=== PATIENT | male | born 1950 ===

== ENCOUNTER 2018-11-21 17:58 | Inpatient (IN) | payer OTHER, SELFPAY ==
[2018-11-21 18:19] VITALS: BMI 23.3
[2018-11-21] MEDS ORDERED: Atropine-Diphenoxylate 0.025-2.5 mg Tab PO STA (19:38)
--- NOTE | 2018-11-21 19:55 | C.PDOC ---
History Of Present Illness 68 year old male presents with vomiting and diarrhea for the past 3 days with occasional abdominal cramping and subjective fever. Patient also ran out of rick care and has been unable to get his medications, reports associated ch est pain today. Denies other complaints at this time. Time Seen by Provider: 11/21/18 19:18 Chief Complaint (Nursing): Abdominal Pain History Per: Patient History/Exam Limitations: no limitations Onset/Duration Of Symptoms: Days Current Symptoms Are (Timing): Still Present Recent travel outside of the [place]: No Past Medical History Reviewed: Historical Data, Nursing Documentation, Vital Signs Vital Signs: Last Vital Signs Temp 98.6 F 11/21/18 18:20 Pulse 68 11/21/18 19:16 Resp 18 11/21/18 18:20 BP 160/96 H 11/21/18 18:20 Pulse Ox 99 11/21/18 18:20 - Medical History PMH: HTN Denies: Chronic Kidney Disease Surgical History: CABG (quintuple bypass 06/2015) - [facility] Procedures INSERT INDWELLING CATH (11/29/14) RT & LT HEART ANGIOCARD (06/11/15) RT/LEFT HEART CARD CATH (06/11/15) Family History: States: Unknown Family Hx - Social History Hx Tobacco Use: No Hx Alcohol Use: No Hx Substance Use: No - Immunization History Hx Tetanus Toxoid Vaccination: No Hx Influenza Vaccination: No Hx Pneumococcal Vaccination: No Review Of Systems Except As Marked, All Systems Reviewed And Found Negative. Constitutional: Positive for: Fever (Subjective) Cardiovascular: Positive for: Chest Pain Respiratory: Negative for: Cough, Shortness of Breath Gastrointestinal: Positive for: Vomiting, Diarrhea Physical Exam - Physical Exam Appears: Non-toxic Skin: Normal Color, Warm, Dry Head: Atraumatic, Normacephalic Eye(s): bilateral: Normal Inspection Oral Mucosa: Moist Neck: Normal, Supple Chest: Symmetrical, No Tenderness Cardiovascular: Rhythm Regular Respiratory: Normal Breath Sounds, No Rales, No Rhonchi, No Wheezing Gastrointestinal/Abdominal: Soft, No Tenderness Back: No CVA Tenderness Neurological/Psych: Oriented x3, Normal Speech ED Course And Treatment - Laboratory Results Result Diagrams: 11/21/18 20:04 11/21/18 20:04 Lab Interpretation: Abnormal Interpretation Of Abnormal: NEW RENAL INSUFF COMPARED TO PRIOR ECG: Interpreted By Me ECG Rhythm: Sinus Rhythm Interpretation Of ECG: TWI I, AVL,V5-6 Rate From EC O2 Sat by Pulse Oximetry: 99 (Room air) Pulse Ox Interpretation: Normal - Radiology CXR: Interpreted by Me, Viewed By Me CXR Interpretation: Yes: Other (No acute findings). No: Infiltrates Reevaluation Time: 21:35 Reassessment Condition: Unchanged - Physician Consult Information Time Consulting Physician Contacted: 21:35 Physician Contacted: Antonio Eugene Outcome Of Conversation: AWARE OF ER FINDINGS WILL ADMIT Medical Decision Making Medical Decision Making: Plan: * EKG * Blood work * CXR * Lomotil * Zofran Disposition Counseled Patient/Family Regarding: Studies Performed, Diagnosis - Disposition Disposition: HOSPITALIZED Disposition Time: 21:35 Condition: STABLE Forms: [facility] ([employer]) - POA Present On Arrival: None - Clinical Impression Clinical Impression: Acute renal insufficiency, Vomiting and diarrhea, Chest pain - Scribe Statement The provider has reviewed the documentation as recorded by the Scribe Vidal Hernandez All medical record entries made by the Scribe were at my direction and personally dictated by me. I have reviewed the chart and agree that the record accurately reflects my personal performance of the history, physical exam, medical decision making, and the department course for this patient. I have also personally directed, reviewed, and agree with the discharge instructions and disposition.
[2018-11-21] MEDS ORDERED: Atropine-Diphenoxylate 0.025-2.5 mg Tab ONE (19:57)
[2018-11-21 20:09] LABS: BASO % 0.6 % (0.0-2.0); EOS # 0.1 K/uL (0.0-0.7); EOS % 1.9 % (0.0-4.0); HEMOGLOBIN 10.6 g/dL (12.0-18.0); LYMPH # 0.9 K/uL (1.0-4.3); LYMPH % 20.3 % (20.0-40.0); MEAN CELL VOLUME 98.4 fL (80.0-94.0); MEAN CORPUSCULAR HEMOGLOBIN 31.6 pg (27.0-31.0); MEAN CORPUSCULAR HGB CONC 32.1 g/dL (33.0-37.0); MEAN PLATELET VOLUME 9.8 fL (7.2-11.7); MONO # 0.4 K/uL (0.0-0.8); NEUT # 3.1 K/uL (1.8-7.0); NEUT % 68.2 % (50.0-75.0); RBC 3.35 Mil/uL (4.40-5.90); RED CELL DISTRIBUTION WIDTH 13.6 % (11.5-14.5); WHITE BLOOD COUNT 4.5 K/uL (4.8-10.8)
[2018-11-21 20:23] LABS: ALB/GLOB RATIO 1.4 (1.0-2.1); ALBUMIN 4.1 g/dL (3.5-5.0); CALCIUM 8.6 mg/dl (8.6-10.4)
[2018-11-21 20:33] LABS: TROPONIN I 0.039 ng/mL (0.00-0.120)
[2018-11-21] MEDS ORDERED: Sodium Chloride 0.9% 250 ML IV ONE (21:33)
[2018-11-21] MEDS ORDERED: Sodium Chloride 0.9% 1,000 ML IV SCH ×2 (21:45→22:47)
--- NOTE | 2018-11-21 22:29 | CP.PCM.HP ---
<Rico Arambula M - Last Filed: 11/22/18 00:31> History of Present Illness - History of Present Illness History of Present Illness: H&P for Dr. Eugene 68 M w/ PMhx of CABG, HTN, HLD, BPH presents to hospital for evaluation of diarrhea/ vomiting for 2 days. Patient states he had home cooked food Wednesday and shortly after had several episodes of non bloody, non bilious vomiting along with diarrhea. Patient stated symptoms persisted for 2 days, but now have resolved. Patient came in for evaluation for cause of symptoms. During arrival to hospital, patient had radiating left sided chest paint to L arm with pain reproducible on deep inspiration pain rated as 5/10 w/ pins and needles sensatio n. Patient reports he has not taken his medications for the last four months as he ran out of refills. At time of H&P patient reports pain having resolved and being asymptomatic. ROS: Denies headaches, vision changes, fevers, chills, nausea, vomiting, diarrhea, constipation, abdominal pain, chest pain, SOB; patient admits to bitter taste similar to gastritis he had several years ago PMD: Clinic PMhx: CABG, HTN, HLD, BPH Pshx: hernia, CABG Meds: aspirin 81 mg daily, plavix 75 mg daily, ramipril 1.25 mg daily Allergies: Denies FHx: Father diabetes, mother HTN Shx: Denies smoking history, ETOH and drug use Present on Admission - Present on Admission Any Indicators Present on Admission: No History of DVT/PE: No History of Uncontrolled Diabetes: No Urinary Catheter: No Decubitus Ulcer Present: No Review of Systems - Constitutional Constitutional: absent: Chills, Fever, Night Sweats - EENT Eyes: Requires Corrective Lenses. absent: Blurred Vision Nose/Mouth/Throat: Dry Mouth. absent: Nose Pain, Bleeding Gums - Cardiovascular Cardiovascular: Dyspnea. absent: Chest Pain, Chest Pain at Rest - Respiratory Respiratory: absent: Dyspnea, Pain on Inspiration - Gastrointestinal Gastrointestinal: absent: Bloating, Diarrhea - Genitourinary Genitourinary: absent: Difficulty Urinating, Nocturia - Musculoskeletal Musculoskeletal: absent: Arthralgias, Myalgias - Neurological Neurological: absent: Disequilibrium, Headaches - Psychiatric Psychiatric: absent: Confusion, Depression Past Patient History - Infectious Disease Hx of Infectious Diseases: None - Tetanus Immunizations Tetanus Immunization: Unknown - Past Medical History & Family History Past Medical History?: No - Past Social History Smoking Status: Never Smoked - CARDIAC Hx Hypertension: Yes - PULMONARY Hx Respiratory Disorders: No - NEUROLOGICAL Hx Neurological Disorder: No - HEENT Hx HEENT Problems: No - RENAL Hx Chronic Kidney Disease: No - ENDOCRINE/METABOLIC Hx Endocrine Disorders: No - HEMATOLOGICAL/ONCOLOGICAL Hx Blood Disorders: No - INTEGUMENTARY Hx Dermatological Problems: No - MUSCULOSKELETAL/RHEUMATOLOGICAL Hx Musculoskeletal Disorders: No Hx Falls: No - GASTROINTESTINAL Other/Comment: INGUINAL HERNIA - GENITOURINARY/GYNECOLOGICAL Hx Prostate Problems: Yes - PSYCHIATRIC Hx Substance Use: No - SURGICAL HISTORY Hx Coronary Artery Bypass Graft: Yes (quintuple bypass 06/2015) - ANESTHESIA Hx Anesthesia: Yes Hx Anesthesia Reactions: No Hx Malignant Hyperthermia: No Meds Allergies/Adverse Reactions: Allergies Allergy/AdvReac Type Severity Reaction Status Date / Time No Known Allergies Allergy Verified 11/21/18 18:18 Physical Exam - Constitutional Appears: Non-toxic, No Acute Distress - Head Exam Head Exam: NORMAL INSPECTION, NORMOCEPHALIC - Eye Exam Eye Exam: EOMI, Normal appearance, PERRL - ENT Exam ENT Exam: Mucous Membranes Dry - Respiratory Exam Respiratory Exam: Clear to Auscultation Bilateral, NORMAL BREATHING PATTERN. absent: Rales, Rhonchi, Wheezes - Cardiovascular Exam Cardiovascular Exam: +S1, +S2. absent: Systolic Murmur - GI/Abdominal Exam GI & Abdominal Exam: Normal Bowel Sounds, Soft. absent: Hypoactive Bowel Sounds, Mass - Extremities Exam Extremities exam: Positive for: full ROM, normal inspection. Negative for: calf tenderness, pedal edema - Back Exam Back exam: absent: CVA tenderness (L), CVA tenderness (R) - Neurological Exam Neurological exam: Alert, CN II-XII Intact, Oriented x3 - Psychiatric Exam Psychiatric exam: Normal Affect, Normal Mood - Skin Skin Exam: Dry, Intact, Normal Color, Warm Additional comments: multiple raised, hyperpigmented, stuck on appearing lesions consistent with seborrhoeic keratosis on chest Results - Vital Signs Recent Vital Signs: Last Vital Signs Temp 98.6 F 11/21/18 21:39 Pulse 59 L 11/21/18 21:39 Resp 16 11/21/18 21:39 BP 159/84 H 11/21/18 21:39 Pulse Ox 99 11/21/18 21:41 - Labs Result Diagrams: 11/21/18 20:04 11/21/18 20:04 Labs: Laboratory Results - last 24 hr 11/21/18 11/21/18 20:04 20:04 WBC 4.5 L RBC 3.35 L Hgb 10.6 L D Hct 33.0 L MCV 98.4 H D MCH 31.6 H MCHC 32.1 L RDW 13.6 Plt Count 146 MPV 9.8 Neut % (Auto) 68.2 Lymph % (Auto) 20.3 [place] % (Auto) 9.0 Eos % (Auto) 1.9 Baso % (Auto) 0.6 Neut # (Auto) 3.1 Lymph # (Auto) 0.9 L [place] # (Auto) 0.4 Eos # (Auto) 0.1 Baso # (Auto) 0.0 Sodium 145 Potassium 3.8 Chloride 109 H Carbon Dioxide 24 Anion Gap 16 BUN 38 H Creatinine 3.7 H Est GFR ( Amer) 20 Est GFR (Non-Af Amer) 16 Random Glucose 92 Calcium 8.6 Total Bilirubin 0.6 AST 30 ALT 38 Alkaline Phosphatase 62 Troponin I 0.0390 Total Protein 7.1 Albumin 4.1 Globulin 3.0 Albumin/Globulin Ratio 1.4 Lipase 87 Assessment & Plan - Assessment and Plan (Free Text) Assessment: 68 M w/ pmhx of CABG, htn, hld, bph presents for evaluation of now resolved diarrhea, vomiting, had a duration of chest pain, non compliant with medication last 4 months, currently in [facility] Plan: Chest Pain - hx of CABG, currently non complaint with medication - not currently following a toe lining closer - R/o ACS - serial ROMIs & EKGs - initial DAVID negative, EKG T wave inversions on lateral leads - resume home medications plavix 75 mg daily, aspirin 81 mg daily - F/u lipid, TSH, hgA1C in AM - F/u cardiology, Dr. Mohit gentile Acute Kidney Injury - Baseline Cr 2018 in low 1s - Currently Cr is 3.7 - likely due to dehydration from diarrhea, vomiting - NS @ 75 mls/hr - will increase fluids following ECHO - will consider nephro consult pending AM labs Hypertension - in lieu of KAYLEEN, will hold ramipril - w/ HR fluctuating, will start hydralizine 10 mg PO Q6H - will monitor vitals BPH - c/w folamax daily Gastritis - pt reports metallic taste in moth - will start pepcid 20 mg PO daily PPx - DVT: SCDs, heparin 5000 units SC - Diet: Heart health diet as patient reports no N/V & resolution of diarrhea, vomiting <Antonio Eugene Rg - Last Filed: 11/22/18 06:10> Results - Vital Signs Recent Vital Signs: Last Vital Signs Temp 98.3 F 11/22/18 05:41 Pulse 83 11/22/18 05:41 Resp 18 11/22/18 05:41 BP 157/83 H 11/22/18 05:41 Pulse Ox 98 11/22/18 05:41 - Labs Result Diagrams: 11/21/18 20:04 11/21/18 20:04 Labs: Laboratory Results - last 24 hr 11/21/18 11/21/18 11/22/18 20:04 20:04 02:26 WBC 4.5 L RBC 3.35 L Hgb 10.6 L D Hct 33.0 L MCV 98.4 H D MCH 31.6 H MCHC 32.1 L RDW 13.6 Plt Count 146 MPV 9.8 Neut % (Auto) 68.2 Lymph % (Auto) 20.3 [place] % (Auto) 9.0 Eos % (Auto) 1.9 Baso % (Auto) 0.6 Neut # (Auto) 3.1 Lymph # (Auto) 0.9 L [place] # (Auto) 0.4 Eos # (Auto) 0.1 Baso # (Auto) 0.0 Sodium 145 Potassium 3.8 Chloride 109 H Carbon Dioxide 24 Anion Gap 16 BUN 38 H Creatinine 3.7 H Est GFR ( Amer) 20 Est GFR (Non-Af Amer) 16 Random Glucose 92 Calcium 8.6 Total Bilirubin 0.6 AST 30 ALT 38 Alkaline Phosphatase 62 Total Creatine Kinase 86 CK-MB (Mass) 1.27 Troponin I 0.0390 0.0390 Total Protein 7.1 Albumin 4.1 Globulin 3.0 Albumin/Globulin Ratio 1.4 Lipase 87 Assessment & Plan - Date & Time Date: 11/22/18 (I have seen and examined the patient. I agree with the findings and plan of care as documented by Dr. Arambula. Patient with chest pain. ROMIx3 with EKG. Aspirin. Statin. Acute kidney injury. Likely secondary to dehydration from vomiting and diarrhea. IVF. Recheck renal function in AM. Vomiting and diarrhea likely from gastroenteritis. Stool Cultures. Monitor for acute changes.) Time: 06:09 Attending/Attestation - Attestation I have personally seen and examined this patient.: Yes I have fully participated in the care of the patient.: Yes I have reviewed all pertinent clinical information: Yes
[2018-11-21] MEDS: Sodium Chloride 0.9% 1,000 ML IV SCH (23:58)
[2018-11-22 02:54] LABS: CK-MB 1.27 ng/mL (0.0-3.38); TROPONIN I 0.039 ng/mL (0.00-0.120)
[2018-11-22 09:17] LABS: BASO % 0.6 % (0.0-2.0); EOS # 0.2 K/uL (0.0-0.7); EOS % 3.3 % (0.0-4.0); HEMOGLOBIN 11.2 g/dL (12.0-18.0); LYMPH # 1.5 K/uL (1.0-4.3); MEAN CORPUSCULAR HEMOGLOBIN 32.2 pg (27.0-31.0); MEAN CORPUSCULAR HGB CONC 32.5 g/dL (33.0-37.0); MEAN PLATELET VOLUME 10.7 fL (7.2-11.7); MONO # 0.4 K/uL (0.0-0.8); MONO % 8.3 % (0.0-10.0); NEUT # 3.3 K/uL (1.8-7.0); NEUT % 60.8 % (50.0-75.0); NRBC % 0.2 % (0.0-2.0); RBC 3.5 Mil/uL (4.40-5.90); RED CELL DISTRIBUTION WIDTH 13.6 % (11.5-14.5); WHITE BLOOD COUNT 5.4 K/uL (4.8-10.8)
[2018-11-22 09:32] LABS: ALB/GLOB RATIO 1.3 (1.0-2.1); ALBUMIN 4.1 g/dL (3.5-5.0); CALCIUM 8.5 mg/dl (8.6-10.4)
[2018-11-22 09:41] LABS: CK-MB 1.59 ng/mL (0.0-3.38); TROPONIN I 0.043 ng/mL (0.00-0.120)
--- NOTE | 2018-11-22 10:00 | RAD ---
Date of service: 11/21/2018 HISTORY: chest pain COMPARISON: 04/06/2016 FINDINGS: LUNGS: Mild venous congestion. Minimal patchy increased markings at the left lung base. Biapical pleural thickening. PLEURA: No significant pleural effusion identified, no pneumothorax apparent. CARDIOVASCULAR: Aortic atherosclerotic calcification and plaque present. Cardiomegaly. Left-sided pacemaker. Status post median sternotomy and CABG. Venous congestion. OSSEOUS STRUCTURES: Degenerative changes in the spine and shoulders. VISUALIZED UPPER ABDOMEN: Normal. OTHER FINDINGS: None. IMPRESSION: Mild venous congestion. Minimal patchy increased markings at the left lung base. Biapical pleural thickening. Cardiomegaly. Left-sided pacemaker. Status post median sternotomy and CABG. Venous congestion.
[2018-11-22] MEDS: Sodium Chloride 0.9% 1,000 ML IV SCH ×2 (11:12→11:55)
--- NOTE | 2018-11-22 12:43 | CARD ---
APPROVED REPORT Date of service: 11/21/2018 EKG Measurement Heart [id number] <Conclusion> Sinus rhythm with short NV Possible Left atrial enlargement Left ventricular hypertrophy with repolarization abnormality Abnormal ECG
--- NOTE | 2018-11-22 13:27 | CP.PCM.PN ---
<Helen Sewell Y - Last Filed: 11/22/18 15:44> Subjective - Date & Time of Evaluation Date of Evaluation: 11/22/18 Time of Evaluation: 09:50 - Subjective Subjective: PGY-1 Medicine Progress note for Dr. Felipe Patient was seen and examined today at bedside in no acute distress. Nurse reports no overnight events. Patient states he feels great improvement of his cardiac symptoms and wants to go home. He will stay for as long as it takes to get a refill of his medications and not have this happen again. Denies chest pain, shortness of breath, abdominal pain, difficulty urinating, headache. He hasn't had a BM since the diarrhea ended 2 days ago since he didn't try to eat prior to coming into the hospital. Tolerated breakfast without nausea, vomiting, diarrhea. Objective - Vital Signs/Intake and Output Vital Signs (last 24 hours): Temp Pulse Resp BP Pulse Ox 97.3 F L 65 20 170/89 H 96 11/22/18 07:00 11/22/18 12:17 11/22/18 07:00 11/22/18 11:11 11/22/18 07:00 Intake and Output: 11/22/18 11/22/18 06:59 18:59 Intake Total 600 Balance 600 - Medications Medications: Current Medications Aspirin (Ecotrin) 81 mg PO DAILY [facility] Last Admin: 11/22/18 10:40 Dose: 81 mg Clopidogrel Bisulfate (Plavix) 75 mg PO DAILY [facility] Last Admin: 11/22/18 10:39 Dose: 75 mg Famotidine (Pepcid) 20 mg PO DAILY [facility] Last Admin: 11/22/18 10:40 Dose: 20 mg Heparin Sodium (Porcine) (Heparin) 5,000 units SC Q8 [facility] Last Admin: 11/22/18 05:43 Dose: 5,000 units Hydralazine HCl (Apresoline) 10 mg PO Q6H [facility] Last Admin: 11/22/18 11:10 Dose: 10 mg Sodium Chloride (Sodium Chloride 0.9%) 1,000 mls @ 75 mls/hr IV .[id number] [facility] Last Admin: 11/22/18 11:55 Dose: Not Given Rosuvastatin Calcium (Crestor) 5 mg PO HS [facility] Tamsulosin HCl (Flomax) 0.4 mg PO DAILY [facility] Last Admin: 11/22/18 10:39 Dose: 0.4 mg - Labs Labs: 11/22/18 08:43 11/22/18 08:43 - Constitutional Appears: Non-toxic, No Acute Distress - Head Exam Head Exam: ATRAUMATIC, NORMOCEPHALIC - Eye Exam Eye Exam: EOMI, PERRL - ENT Exam ENT Exam: Mucous Membranes Moist - Respiratory Exam Respiratory Exam: Clear to Ausculation Bilateral, NORMAL BREATHING PATTERN. absent: Rales, Rhonchi, Wheezes - Cardiovascular Exam Cardiovascular Exam: REGULAR RHYTHM, +S1, +S2. absent: Gallop, Rubs, Murmur - GI/Abdominal Exam GI & Abdominal Exam: Firm (contracted muscles from being ticklish), Soft, Normal Bowel Sounds. absent: Tenderness - Extremities Exam Extremities Exam: Normal Capillary Refill Additional comments: IV access in L arm - Back Exam Back Exam: absent: CVA tenderness (L), CVA tenderness (R) - Neurological Exam Neurological Exam: Alert, Awake, Oriented x3 - Psychiatric Exam Psychiatric exam: Normal Affect, Normal Mood - Skin Skin Exam: Dry, Intact, Normal Color, Warm Additional comments: SK on chest Assessment and Plan - Assessment and Plan (Free Text) Assessment: 68yo M PMH CHF s/p CABG, AICD, CAD, HTN, BPH, presents with chest pain 2/2 non- compliance with medications, currently in [facility]. Plan: [facility] - Baseline Cr 2018 in low 1s - Cr trend: 3.7 OA -> 3.5 today - likely due to dehydration from diarrhea, vomiting - IVF: NS@75 - will increase fluids pending ECHO - Nephro consulted: Dr. Mccray - help appreciated Chest Pain - resolving r/o ACS - serial ROMIs and EKGs negative x3 - Lipid panel: TG 119 Chol 160 LDL 77 HDL 57 - TSH: 1.71, Hgb A1c: 6.0 - CXR (11/21): mild venous congestion. minimal patchy increased markings at the LL base. bi-apical pleural thickening. cardiomegaly. L sided pacemaker. s/p median sternotomy and CABG. venous congestion. - f/u ECHO (11/21): pending read - home ASA 81mg po daily - home Plavix 75mg po daily - Cardio consulted: Dr. Rueda - help appreciated Hypertension - hold Ramipril 2/2 [facility] - Hydralazine 10mg po q6 - Amlodipine 2.5mg po daily - monitor vitals BPH - home Flomax 0.4mg po daily PPx - DVT: Heparin 5000u sc q8, Plavix 75mg po daily, SCDs - GI: Pepcid 20mg po daily, Miralax 17gm po once - Diet: HHD d/w Dr. Destinee Sewell PGY-1 <Kev Felipe - Last Filed: 11/22/18 19:08> Objective - Vital Signs/Intake and Output Vital Signs (last 24 hours): Temp Pulse Resp BP Pulse Ox 98 F 63 18 148/81 96 11/22/18 15:34 11/22/18 16:00 11/22/18 15:34 11/22/18 15:34 11/22/18 15:34 Intake and Output: 11/22/18 11/23/18 18:59 06:59 Intake Total 1200 Balance 1200 - Medications Medications: Current Medications Amlodipine Besylate (Norvasc) 2.5 mg PO DAILY [facility] Last Admin: 11/22/18 14:45 Dose: 2.5 mg Aspirin (Ecotrin) 81 mg PO DAILY [facility] Last Admin: 11/22/18 10:40 Dose: 81 mg Clopidogrel Bisulfate (Plavix) 75 mg PO DAILY [facility] Last Admin: 11/22/18 10:39 Dose: 75 mg Famotidine (Pepcid) 20 mg PO DAILY [facility] Last Admin: 11/22/18 10:40 Dose: 20 mg Heparin Sodium (Porcine) (Heparin) 5,000 units SC Q8 [facility] Last Admin: 11/22/18 13:36 Dose: 5,000 units Hydralazine HCl (Apresoline) 10 mg PO Q6H [facility] Last Admin: 11/22/18 17:25 Dose: 10 mg Sodium Chloride (Sodium Chloride 0.9%) 1,000 mls @ 75 mls/hr IV .[id number] [facility] Last Admin: 11/22/18 11:55 Dose: Not Given Rosuvastatin Calcium (Crestor) 5 mg PO HS [facility] Tamsulosin HCl (Flomax) 0.4 mg PO DAILY [facility] Last Admin: 11/22/18 10:39 Dose: 0.4 mg - Labs Labs: 11/22/18 08:43 11/22/18 08:43 Attending/Attestation - Attestation I have personally seen and examined this patient.: Yes I have fully participated in the care of the patient.: Yes I have reviewed all pertinent clinical information, including history, physical exam and plan: Yes Notes (Text): acute renal failure nephrology consult
[2018-11-22] MEDS ORDERED: POLYETHYLENE GLYCOL 3350 17 GM/Dose PACKET PO SCH (14:30)
[2018-11-22] MEDS ORDERED: POLYETHYLENE GLYCOL 3350 17 GM/Dose PACKET PO ONE (14:30)
[2018-11-22 18:02] LABS: SQUAMOUS EPITHIAL 1 /hpf (0-5); URINE BILIRUBIN NEGATIVE (NEGATIVE); URINE BLOOD NEGATIVE (NEGATIVE); URINE CLARITY Clear (Clear); URINE COLOR Yellow (YELLOW); URINE GLUCOSE (UA) NORMAL (Normal); URINE LEUKOCYTE ESTERASE NEG Leu/uL (Negative); URINE PROTEIN NEGATIVE (NEGATIVE); URINE UROBILINOGEN NORMAL mg/dL (0.2-1.0)
[2018-11-22 18:10] LABS: CREATININE, RANDOM URINE 68.1 mg/dL
--- NOTE | 2018-11-22 18:34 | CARD ---
APPROVED REPORT Date of service: 11/22/2018 EXAM: Two-dimensional and M-mode echocardiogram with Doppler and color Doppler. Other Information Quality : GoodRhythm : INDICATION Congestive Heart Failure Palpitations Surgery/Intervention CABG: RISK FACTORS Hypertension Hyperlipidemia 2D DIMENSIONS IVSd1.1 (0.7-1.1cm)LVDd5.9 (3.9-5.9cm) PWd0.8 (0.7-1.1cm)LA [id number] (18-58mL) LVDs5.0 (2.5-4.0cm)FS (%) 15.5 % LVEF (%)32.2 (>50%)LVEF (Ray's)36.67 % IVC0.00 cm M-Mode DIMENSIONS Left Atrium (MM)3.59 (2.5-4.0cm)IVSd2.12 (0.7-1.1cm) Aortic Root3.57 (2.2-3.7cm)LVDd6.59 (4.0-5.6cm) Aortic Cusp Exc.2.43 (1.5-2.0cm)PWd0.76 (0.7-1.1cm) FS (%) 17 %LVDs5.45 (2.0-3.8cm) TAPSE17.96 cmLVEF (%)35 (>50%) Aortic Valve AI P 1/2 [id number] Mitral Valve MV E Snkgrrtr68.0cm/sMV A Hffzrgem95.7cm/sE/A ratio1.4 MUZS184.00 cm/s TDI Lateral E' Peak V7.45cm/sMedial E' Peak V3.45cm/sE/Lateral E'11.4 E/Medial E'24.6 Tricuspid Valve TR Peak Bazfvzzo058im/sTR Peak Gr.[id number] LEFT VENTRICLE The left ventricle is normal size. There is normal left ventricular wall thickness. Left ventricle systolic function is moderately to severely impaired. The Ejection Fraction is 35-40%. There is moderate to severe hypokinesis in the basal inferoseptal wall. Transmitral Doppler flow pattern is Grade II-pseudonormal filling dynamics. There is no ventricular septal defect visualized. RIGHT VENTRICLE The right ventricle is normal size. The right ventricular systolic function is normal. There is a pacemaker lead in the right ventricle. ATRIA The left atrium is moderately dilated. The right atrium size is normal. AORTIC VALVE The aortic valve is mildly sclerotic. The aortic valve is tri-cuspid. There is mild aortic regurgitation. There is no aortic valvular stenosis. MITRAL VALVE The mitral valve is normal in structure. There is no evidence of mitral valve prolapse. Mitral regurgitation is mild. ERO 0.2 cm TRICUSPID VALVE The tricuspid valve is normal in structure. There is mild tricuspid regurgitation. Right ventricular systolic pressure is estimated at 40-50 mmHg. There is moderate pulmonary hypertension. PULMONIC VALVE The pulmonary valve is normal in structure. There is trace pulmonic valvular regurgitation. GREAT VESSELS The aortic root is mildly enlarged. 3.9 cm The ascending aorta is Mildly dilated. 4.2 cm The IVC is normal in size and collapses >50% with inspiration. PERICARDIAL EFFUSION There is no pericardial effusion. <Conclusion> Left ventricle systolic function is moderately to severely impaired. The Ejection Fraction is 35-40%. Transmitral Doppler flow pattern is Grade II-pseudonormal filling dynamics. There is mild aortic regurgitation. Mitral regurgitation is mild. ERO 0.2 cm There is moderate pulmonary hypertension. The ascending aorta is Mildly dilated. 4.2 cm
[2018-11-22 20:15] LABS: CALCIUM 8.2 mg/dl (8.6-10.4)
[2018-11-23] MEDS: Sodium Chloride 0.9% 1,000 ML IV SCH (03:45)
--- NOTE | 2018-11-23 07:03 | CON ---
DATE: 11/22/2018 NEPHROLOGY CONSULTATION LOCATION: [facility] HISTORY OF PRESENT ILLNESS: The patient is a 68-year-old male with past medical history of hypertension, CAD status post CABG, hyperlipidemia, BPH, presented with lethargy after having had vomiting and diarrhea for two days. Nephrology being consulted for acute renal failure. The patient reportedly had nonbloody, nonbilious vomiting along with diarrhea for two days prior to presentation, although symptoms had resolved by the time of presentation. The patient currently feels better, is tolerating diet with appetite improving; has not had any vomiting or diarrhea. Today, the patient in the ER was started on IV fluids, currently having received approximately 2 liters since the time of presentation. The patient reports urinating well. Reports that he ran out of all his medications except for Flomax; ran out of medications after his [employer] . Has not seen his PMD since middle of last year for this reason. PAST MEDICAL HISTORY: As above. SOCIAL HISTORY: Denies smoking. FAMILY HISTORY: Father with diabetes. Mother with hypertension. REVIEW OF SYSTEMS: CONSTITUTIONAL: Reports 5-kilo weight loss over the past approximately six months. Denies any night sweats or fevers. HEENT: Denies any difficulty swallowing. Vision is stable. RESPIRATORY: Reports occasional dyspnea but otherwise able to walk many blocks without symptoms. CARDIOVASCULAR: Reports occasional chest pain, occasional palpitations but not related to exertion. GASTROINTESTINAL: As per HPI. GENITOURINARY: Denies any dysuria. Reports regular urine stream that he attributes to being on Flomax. MUSCULOSKELETAL: Denies any back pain or arthralgias. Does not take any pain medications. SKIN: Denies any pruritus. NEUROLOGIC: Reports some numbness in his feet. PHYSICAL EXAMINATION: VITAL SIGNS: This afternoon, blood pressure 148/81, heart rate 68, respirations 18, temperature 98, and O2 sat 96% on room air. GENERAL: No distress. Conversing coherently in full sentences. HEENT: Moist mucous membranes. Nonicteric. No cervical lymphadenopathy. No elevation in JVD. RESPIRATORY: Lungs clear to auscultation bilaterally. No rales. No rhonchi. No wheezes. CARDIOVASCULAR: Heart sounds S1 and S2 normal. No murmurs. No gallops. No rubs. GASTROINTESTINAL: Abdomen is soft, nontender, and is distended. GENITOURINARY: Has distention over bladder area all the way to the umbilicus. EXTREMITIES: No leg edema. SKIN: Warm. No cyanosis. PSYCHIATRIC: Normal mood, normal affect. NEUROLOGIC: No obvious tremor of outstretched hands. LABORATORY DATA: From this morning, CBC; WBC 5.4, hemoglobin 11.2, hematocrit 34.6, platelets 134. Chemistry panel from this evening; sodium 141, potassium 4.5, chloride 106, bicarb 27, BUN 36, creatinine 3.6, glucose 119, calcium 8.2. Urine studies, protein negative, blood negative. Urine sodium 74, urine creatinine 68.1. Chest x-ray directly visualized shows lungs clear yesterday. Echo report reviewed showing left ventricular systolic function moderately severely impaired with EF 35-40%, moderate pulmonary hypertension. ASSESSMENT AND PLAN: 1. Acute renal failure. The patient is without any improvement in renal funciton with intravascular volume expansion despite gastrointestinal losses having remitted prior to presentation. Elevated urine sodium goes against prerenal state as well. The patient is having marked suprapubic distention on exam likely indicative of bladder outlet obstruction, but we will confirm with renal and bladder ultrasound. Once obstruction is confirmed, we will place Ann catheter. If there is no evidence of any obstructive process, we will need to pursue further workup. 2. Hypertension, uncontrolled for much of the day, but improving after patient restarted on medications. Agree with hydralazine 10 mg every 6 hours and amlodipine 2.5 mg daily for now. However, should switch to a simplified regimen prior to discharge. 3. Benign prostatic hypertrophy, waiting to see if there is any obstructive uropathy. If so, should increase Flomax to 0.8 mg daily and start finasteride 5 mg daily. Thank you for this referral. We will be following closely. Peter Mccray MD MTDFreeman
[2018-11-23 09:18] LABS: BASO % 0.6 % (0.0-2.0); EOS # 0.2 K/uL (0.0-0.7); EOS % 3.1 % (0.0-4.0); HEMOGLOBIN 10.4 g/dL (12.0-18.0); LYMPH # 1.3 K/uL (1.0-4.3); LYMPH % 25.7 % (20.0-40.0); MEAN CELL VOLUME 97.4 fL (80.0-94.0); MEAN CORPUSCULAR HEMOGLOBIN 32.4 pg (27.0-31.0); MEAN CORPUSCULAR HGB CONC 33.2 g/dL (33.0-37.0); MEAN PLATELET VOLUME 9.9 fL (7.2-11.7); MONO # 0.3 K/uL (0.0-0.8); MONO % 5.7 % (0.0-10.0); NEUT # 3.3 K/uL (1.8-7.0); NEUT % 64.9 % (50.0-75.0); RBC 3.2 Mil/uL (4.40-5.90); RED CELL DISTRIBUTION WIDTH 13.2 % (11.5-14.5); WHITE BLOOD COUNT 5.1 K/uL (4.8-10.8)
[2018-11-23 09:36] LABS: ALB/GLOB RATIO 1.3 (1.0-2.1); ALBUMIN 3.5 g/dL (3.5-5.0); CALCIUM 8.1 mg/dl (8.6-10.4)
--- NOTE | 2018-11-23 09:41 | US ---
Date of service: 11/22/2018 PROCEDURE: Ultrasound of the Kidneys HISTORY: acute renal failure COMPARISON: Comparison is made with the previous ultrasound of the abdomen dated 02/17/2016. TECHNIQUE: Sonogram of the kidneys. FINDINGS: RIGHT KIDNEY: Measures: 12.1 x 5.6 x 6.1 cm. Heterogeneous renal cortex with mild increased echogenicity. Is moderate to severe right hydronephrosis and proximal hydroureter. LEFT KIDNEY: Measures: 11.3 x 5.2 x 6 cm. Heterogeneous mild increased echogenicity of the renal cortex Moderate to severe left hydronephrosis is also noted. OTHER FINDINGS: The urinary bladder is distended demonstrate [id number] circumferential wall thickening. The prostate is enlarged protruding into the bladder lumen measures 6.9 x 5.8 x 5.9 centimeter with a total volume of 122.8 mL. There is possible small diverticulum in the left posterior aspect of the bladder measures 2.6 x 1.7 centimeter. IMPRESSION: Moderate to severe bilateral hydronephrosis. Mild increased echogenicity of the renal cortex suggestive of renal disease. Distended urinary bladder demonstrate [id number] diffuse wall thickening suggestive of bladder outlet obstruction. Moderately to markedly enlarged prostate with a total volume of 122.8 mL. Preliminary report contains concordant findings was submitted by [facility] Radiology.
[2018-11-23] MEDS ORDERED: Potassium Chloride 20 mEq ER Tab PO ONE (10:16)
--- NOTE | 2018-11-23 10:23 | CP.PCM.PN ---
<Yasmin Cano - Last Filed: 11/23/18 13:41> Subjective - Date & Time of Evaluation Date of Evaluation: 11/23/18 Time of Evaluation: 10:18 - Subjective Subjective: Progress note for Dr. Mccray Patient was seen and examined at bedside in no acute distress. Patient reports he is feeling better than yesterday. He said he is urinating w/o difficulty this morning and has voided 3 times. He admits to blood in urine s/p hanna insertion attempted last night. Patient otherwise has no complaints today and denies abdominal pain, pelvic/suprapubic pain, chest pain, palpitations, nausea, vomiting, fevers, headaches, dizziness, leg pain, leg swelling, back pain, and pain with urination. Objective - Vital Signs/Intake and Output Vital Signs (last 24 hours): Temp Pulse Resp BP Pulse Ox 98.0 F 58 L 20 154/80 H 97 11/23/18 07:00 11/23/18 07:50 11/23/18 07:00 11/23/18 07:00 11/23/18 07:00 Intake and Output: 11/23/18 11/23/18 06:59 18:59 Intake Total 600 Output Total 225 Balance 375 - Medications Medications: Current Medications Amlodipine Besylate (Norvasc) 2.5 mg PO DAILY [facility] Last Admin: 11/23/18 09:51 Dose: 2.5 mg Aspirin (Ecotrin) 81 mg PO DAILY [facility] Last Admin: 11/23/18 09:50 Dose: 81 mg Clopidogrel Bisulfate (Plavix) 75 mg PO DAILY [facility] Last Admin: 11/23/18 09:50 Dose: 75 mg Famotidine (Pepcid) 20 mg PO DAILY [facility] Last Admin: 11/23/18 09:50 Dose: 20 mg Finasteride (Proscar) 5 mg PO DAILY [facility] Last Admin: 11/23/18 09:51 Dose: 5 mg Heparin Sodium (Porcine) (Heparin) 5,000 units SC Q8 [facility] Last Admin: 11/23/18 06:27 Dose: 5,000 units Hydralazine HCl (Apresoline) 10 mg PO Q6H [facility] Last Admin: 11/23/18 06:27 Dose: 10 mg Potassium Chloride (K-Dur 20 Meq Er Tab) 20 meq PO ONCE ONE Stop: 11/23/18 10:17 Rosuvastatin Calcium (Crestor) 5 mg PO HS [facility] Last Admin: 11/22/18 21:55 Dose: 5 mg Tamsulosin HCl (Flomax) 0.8 mg PO DAILY [facility] Last Admin: 11/23/18 09:50 Dose: Not Given - Labs Labs: 11/23/18 09:02 11/23/18 09:02 - Constitutional Appears: No Acute Distress - Head Exam Head Exam: ATRAUMATIC, NORMAL INSPECTION - Eye Exam Eye Exam: EOMI, Normal appearance - ENT Exam ENT Exam: Mucous Membranes Moist - Respiratory Exam Respiratory Exam: NORMAL BREATHING PATTERN. absent: Rales, Rhonchi, Wheezes, Respiratory Distress Additional comments: Well healed mid sternal scar, pacemaker in left chest wall - Cardiovascular Exam Cardiovascular Exam: REGULAR RHYTHM, +S1, +S2 - GI/Abdominal Exam GI & Abdominal Exam: Firm (suprapubic region), Normal Bowel Sounds. absent: Guarding, Tenderness - Exam Exam: Bladder Distension - Extremities Exam Extremities Exam: Normal Inspection. absent: Pedal Edema, Tenderness - Neurological Exam Neurological Exam: Alert, Awake, Oriented x3 - Psychiatric Exam Psychiatric exam: Normal Affect, Normal Mood - Skin Skin Exam: Dry, Normal Color, Warm Assessment and Plan - Assessment and Plan (Free Text) Plan: 68 year old male with a history of CABG, HTN, HLD, and BPH, who presented to the hospital with diarrhea, vomiting, and chest pain. Inspector Elevators consulted for KAYLEEN. Acute Renal Failure - Secondary to enlarged prostate and obstruction - Baseline Cr 1.1 in 10/2017 - Improved slightly since admission (3.7), now 3.4 - UA: negative for protein and blood - Urine Cr 68.1, Urine Na 74 - Bladder US: moderate to severe bilateral hydronephrosis; mild increased echogenicity of the renal cortex suggestive of renal disease; distended urinary bladder demonstrate mild-to moderate diffuse wall thickening suggestive of bladder outlet obstruction; moderately to markedly enlarged prostate w/a total volume 122.8mL. Prostate is enlarged protruding into bladder lumen measuring 6.9x5.8x5.9cm. - Hanna catheter inserted on 11/23/18. Monitor I/Os. - Urology was consulted, Dr Cunningham; Will f/u recommendations. Hypertension - Hold home medication: Ramipril, due to ARF - Continue Hydralazine 10mg PO Q6 and Amlodipine 2.5mg PO Daily Benign Prostatic Hypertrophy - Increased home medication to Flomax 0.8mg PO daily - Started Finasteride 5mg PO daily Case discussed with Dr. Mahendra Mullen, PGY2 <Peter Mccray - Last Filed: 11/24/18 06:38> Objective - Vital Signs/Intake and Output Vital Signs (last 24 hours): Temp Pulse Resp BP Pulse Ox 98.6 F 83 20 160/90 H 97 11/24/18 05:25 11/24/18 05:25 11/24/18 05:25 11/24/18 05:25 11/24/18 05:25 Intake and Output: 11/23/18 11/24/18 18:59 06:59 Intake Total 300 Output Total 2100 4350 Balance -1800 -4350 - Medications Medications: Current Medications Amlodipine Besylate (Norvasc) 10 mg PO DAILY [facility] Aspirin (Ecotrin) 81 mg PO DAILY [facility] Last Admin: 11/23/18 09:50 Dose: 81 mg Clopidogrel Bisulfate (Plavix) 75 mg PO DAILY [facility] Last Admin: 11/23/18 09:50 Dose: 75 mg Famotidine (Pepcid) 20 mg PO DAILY [facility] Last Admin: 11/23/18 09:50 Dose: 20 mg Finasteride (Proscar) 5 mg PO DAILY [facility] Last Admin: 11/23/18 09:51 Dose: 5 mg Heparin Sodium (Porcine) (Heparin) 5,000 units SC Q8 [facility] Last Admin: 11/24/18 05:27 Dose: 5,000 units Hydralazine HCl (Apresoline) 10 mg PO Q6H [facility] Last Admin: 11/24/18 05:26 Dose: 10 mg Sodium Chloride (Sodium Chloride 0.45%) 1,000 mls @ 100 mls/hr IV .Q10H [facility] Last Admin: 11/23/18 22:17 Dose: 100 mls/hr Rosuvastatin Calcium (Crestor) 5 mg PO HS [facility] Last Admin: 11/23/18 22:11 Dose: 5 mg Sennosides (Senokot Tab) 8.6 mg PO DAILY [facility] Last Admin: 11/23/18 12:02 Dose: 8.6 mg Tamsulosin HCl (Flomax) 0.8 mg PO DAILY [facility] - Labs Labs: 11/23/18 09:02 11/23/18 09:02 Attending/Attestation - Attestation I have personally seen and examined this patient.: Yes I have fully participated in the care of the patient.: Yes I have reviewed all pertinent clinical information, including history, physical exam and plan: Yes Notes (Text): Patient seen and examined; I agree with the resident's note as above with the following additions/edits: Patient with history of htn, CAD s/p CABG, BPH, admitted with acute renal failure, found to have severe bilateral hydronephrosis and bladder outlet ob struction from enlarged prostate; Hanna finally able to be inserted today; noted to be polyuric; urology consult appreciated, patient will need to keep hanna in place for at least 1 week while on current meds (flomax 0.8 and finasteride); Acute renal failure due to obstructive uropathy; question is whether renal function will improve significantly, especially if hydro has been very prolonged (possibly months); will need to monitor closely; HTN uncontrolled, will increase amlodipine to 10 mg daily; continue hydralazine for now; -starting on IVF with 1/2NS at 100 cc/hr to avoid volume depletion; -monitor electrolytes; -avoid nephrotoxic agents;
--- NOTE | 2018-11-23 11:49 | CP.PCM.PN ---
<Helen Sewell Y - Last Filed: 11/23/18 15:59> Subjective - Date & Time of Evaluation Date of Evaluation: 11/23/18 Time of Evaluation: 09:30 - Subjective Subjective: PGY-1 Medicine Progress note for Dr. Felipe Patient was seen and examined today at bedside in no acute distress. Patient had an attempted Ann insertion last night that was unsuccessful do to BPH. He admits to minimal bleeding last night, and some scant streaking hematuria this morning. He still has been unable to have a BM. Tolerating food without nausea, vomiting. Denies chest pain, shortness of breath, abdominal pain, difficulty urinating, headache. Objective - Vital Signs/Intake and Output Vital Signs (last 24 hours): Temp Pulse Resp BP Pulse Ox 98.0 F 58 L 20 154/80 H 97 11/23/18 07:00 11/23/18 07:50 11/23/18 07:00 11/23/18 07:00 11/23/18 07:00 Intake and Output: 11/23/18 11/23/18 06:59 18:59 Intake Total 600 Output Total 225 Balance 375 - Medications Medications: Current Medications Amlodipine Besylate (Norvasc) 2.5 mg PO DAILY [facility] Last Admin: 11/23/18 09:51 Dose: 2.5 mg Aspirin (Ecotrin) 81 mg PO DAILY [facility] Last Admin: 11/23/18 09:50 Dose: 81 mg Clopidogrel Bisulfate (Plavix) 75 mg PO DAILY [facility] Last Admin: 11/23/18 09:50 Dose: 75 mg Famotidine (Pepcid) 20 mg PO DAILY [facility] Last Admin: 11/23/18 09:50 Dose: 20 mg Finasteride (Proscar) 5 mg PO DAILY [facility] Last Admin: 11/23/18 09:51 Dose: 5 mg Heparin Sodium (Porcine) (Heparin) 5,000 units SC Q8 [facility] Last Admin: 11/23/18 06:27 Dose: 5,000 units Hydralazine HCl (Apresoline) 10 mg PO Q6H [facility] Last Admin: 11/23/18 10:36 Dose: 10 mg Rosuvastatin Calcium (Crestor) 5 mg PO HS [facility] Last Admin: 11/22/18 21:55 Dose: 5 mg Sennosides (Senokot Tab) 8.6 mg PO DAILY [facility] Tamsulosin HCl (Flomax) 0.8 mg PO DAILY [facility] - Labs Labs: 11/23/18 09:02 11/23/18 09:02 - Constitutional Appears: Well, No Acute Distress - Head Exam Head Exam: ATRAUMATIC, NORMOCEPHALIC - Eye Exam Eye Exam: EOMI, PERRL - ENT Exam ENT Exam: Mucous Membranes Moist - Respiratory Exam Respiratory Exam: Clear to Ausculation Bilateral, NORMAL BREATHING PATTERN. absent: Rales, Rhonchi, Wheezes - Cardiovascular Exam Cardiovascular Exam: REGULAR RHYTHM, +S1, +S2. absent: Gallop, Rubs, Murmur - GI/Abdominal Exam GI & Abdominal Exam: Firm, Soft, Normal Bowel Sounds. absent: Guarding, Tenderness - Exam Exam: NORMAL INSPECTION, Bladder Distension - Extremities Exam Extremities Exam: Normal Capillary Refill. absent: Tenderness Additional comments: IV access in L arm - Back Exam Back Exam: absent: CVA tenderness (L), CVA tenderness (R) - Neurological Exam Neurological Exam: Alert, Awake, Oriented x3 - Psychiatric Exam Psychiatric exam: Normal Affect, Normal Mood - Skin Skin Exam: Dry, Intact, Normal Color, Warm Additional comments: SK on chest Assessment and Plan - Assessment and Plan (Free Text) Assessment: 68yo M PMH CHF s/p CABG, AICD, CAD, HTN, BPH, presents with chest pain 2/2 non- compliance with medications, which has now resolved. He currently is in KAYLEEN 2/2 hydronephrosis. Plan: KAYLEEN 2/2 hydronephrosis - Baseline Cr 2018 in low 1s - Cr trend: 3.7 OA -> 3.5 -> 3.4 today - US Bladder (11/23): mod to severe hydronephrosis. distended bladder with mild to mod diffuse wall thickening suggestive of bladder outlet obstruction, enlarged prostate. - Patient was still retaining on post void bladder scan. Voided almost 2L with Ann. - monitor I/O - Nephro consulted: Dr. Mccray - help appreciated - Uro consulted: Dr. Cunningham - help appreciated - failed Ann insertion 11/22 - traumatic - successful insertion 11/23 Chest Pain - resolved r/o ACS - serial ROMIs and EKGs negative x3 - Lipid panel: TG 119 Chol 160 LDL 77 HDL 57 - TSH: 1.71, Hgb A1c: 6.0 - CXR (3/11): mild venous congestion. minimal patchy increased markings at the LL base. bi-apical pleural thickening. cardiomegaly. L sided pacemaker. s/p median sternotomy and CABG. venous congestion. - ECHO (11/21): LVEF 35-40%, mod pulm hypertension, mildly dilated ascending aorta (4.2cm) - home ASA 81mg po daily - home Plavix 75mg po daily - Crestor 5mg po HS - Cardio consulted: Dr. Rueda - help appreciated Hypertension - hold Ramipril 2/2 KAYLEEN - Hydralazine 10mg po q6 - Amlodipine 2.5mg po daily - monitor vitals BPH - Flomax 0.8mg po daily - Finasteride 5mg po daily PPx - DVT: Heparin 5000u sc q8, Plavix 75mg po daily, SCDs - GI: Pepcid 20mg po daily, Senokot 8.6mg po daily - Diet: HHD - IVF: stopped d/w Dr. Destinee Sewell PGY-1 <Kev Felipe - Last Filed: 11/25/18 14:57> Objective - Vital Signs/Intake and Output Vital Signs (last 24 hours): Temp Pulse Resp BP Pulse Ox 98.1 F 81 20 122/74 98 11/25/18 07:00 11/25/18 07:00 11/25/18 07:00 11/25/18 07:00 11/25/18 07:00 Intake and Output: 11/25/18 11/25/18 06:59 18:59 Intake Total 1280 Output Total 2150 Balance -870 - Medications Medications: Current Medications Amlodipine Besylate (Norvasc) 10 mg PO DAILY [facility] Last Admin: 11/25/18 11:31 Dose: 10 mg Aspirin (Ecotrin) 81 mg PO DAILY [facility] Last Admin: 11/25/18 11:31 Dose: 81 mg Clopidogrel Bisulfate (Plavix) 75 mg PO DAILY [facility] Last Admin: 11/25/18 11:30 Dose: 75 mg Famotidine (Pepcid) 20 mg PO DAILY [facility] Last Admin: 11/25/18 11:31 Dose: 20 mg Finasteride (Proscar) 5 mg PO DAILY [facility] Last Admin: 11/25/18 11:30 Dose: 5 mg Heparin Sodium (Porcine) (Heparin) 5,000 units SC Q8 [facility] Last Admin: 11/25/18 13:28 Dose: 5,000 units Sodium Chloride (Sodium Chloride 0.45%) 1,000 mls @ 100 mls/hr IV .Q10H [facility] Last Admin: 11/25/18 14:46 Dose: Not Given Rosuvastatin Calcium (Crestor) 5 mg PO HS [facility] Last Admin: 11/24/18 21:43 Dose: 5 mg Sennosides (Senokot Tab) 8.6 mg PO DAILY [facility] Last Admin: 11/25/18 11:30 Dose: 8.6 mg Tamsulosin HCl (Flomax) 0.8 mg PO DAILY [facility] Last Admin: 11/25/18 11:30 Dose: 0.8 mg - Labs Labs: 11/25/18 06:42 11/25/18 06:42 Attending/Attestation - Attestation I have personally seen and examined this patient.: Yes I have fully participated in the care of the patient.: Yes I have reviewed all pertinent clinical information, including history, physical exam and plan: Yes Notes (Text): ARF 2/2 obstructive uropathy hydronephrosis
--- NOTE | 2018-11-23 12:44 | CARD ---
APPROVED REPORT Date of service: 11/22/2018 EKG Measurement Heart [id number] <Conclusion> Normal sinus rhythm T wave abnormality, consider lateral ischemia Prolonged QT Abnormal ECG
--- NOTE | 2018-11-23 12:46 | CARD ---
APPROVED REPORT Date of service: 11/22/2018 EKG Measurement Heart [id number] <Conclusion> Normal sinus rhythm ST & T wave abnormality, consider lateral ischemia Abnormal ECG
[2018-11-23] MEDS: Sodium Chloride 0.45% 1,000 ML IV SCH (22:17)
--- NOTE | 2018-11-24 02:52 | CON ---
DATE: 11/23/2018 COMPREHENSIVE UROLOGIC CONSULTATION TIME OF CONSULTATION: Roughly 3:30 p.m. BRIEF HISTORY: The patient is a 68-year-old male who was admitted for treatment of gastritis with diarrhea and eventually during this hospitalization went into acute urinary retention requiring insertion of a 16-Thai Coude catheter to gravity drainage. The patient does have a prior history of coronary artery disease, status post CABG, hypertension, hyperlipidemia, and BPH. The patient was previously on Flomax 0.4 mg daily at home for at least 3 years. The patient now was placed on Flomax 0.8 mg daily with finasteride 5 mg daily after treatment of both BPH and acute urinary retention. PAST SURGICAL HISTORY: Positive for CABG. Positive for pacemaker insertion. He had a bladder ultrasound during this admission done on 11/22/2018 with renal ultrasound which showed bilateral hydronephrosis and a distended bladder with a prostate volume of 122.8 cc. ALLERGIES: HE HAS NO KNOWN ALLERGIES TO ANY MEDICATIONS. SOCIAL HISTORY: No history of tobacco use or alcohol use. MEDICATIONS: He is also on 81 mg of low dose aspirin daily, Plavix 75 mg daily, and Ramipril 1.25 mg daily. FAMILY HISTORY: His father has diabetes and his mother has hypertension. PHYSICAL EXAMINATION: GENERAL: The patient is a well developed, well nourished male. He is alert. He is oriented. HEENT: Grossly within normal limits. NECK: Supple. Thyroid not palpable. ABDOMEN: Soft, nondistended, nontender. No CVA tenderness. No suprapubic tenderness. GENITOURINARY: He has a 16-Thai Coude red catheter draining blood tinged urine well. The patient is very comfortable at this hour with the Coude Ann catheter. His testicles are down bilaterally, nontender without any masses. RECTAL: Normal rectal tone without fluctuance or masses. Prostate is massively enlarged, smooth, symmetrical, nontender without nodules or indurations with a palpable median sulcus. EXTREMITIES: He has full range of motion of both upper and lower extremities. VITAL SIGNS: Today 11/23/2018, temperature 99, pulse rate is 74, blood pressure is 158/85, respiratory rate 18, and O2 saturation on room air is 98%. LABORATORY EVALUATION: Today, 11/23/2018 shows a CBC with a WBC count of 5.1, hemoglobin of 10.4, hematocrit 31.2, and platelet count of 149,000. Chem profile shows a sodium of 138, potassium 3.5, chloride 107, CO2 25, BUN and creatinine 37 and 3.4, which is slightly improved from his previous creatinine of 3.7 on 11/21/2018. His GFR at this time is 22, consistent with chronic kidney disease stage IV. His random glucose is 111. Calcium 8.1. Phosphorous 3.3, magnesium 1.7, total bilirubin 0.3, AST 22, ALT 31, alkaline phosphatase today is 60. Urinalysis on 11/22/2018 prior to insertion of the Coude catheter showed the color was yellow, appearance cloudy, it was clear, pH 5, specific gravity of 1.010, protein negative, glucose normal. Ketones, blood, nitrite, bilirubin all negative. Urobilinogen normal. Leukocyte esterase negative, 1 wbc, less than 1 rbc per high power field indicating a relatively normal urinalysis prior to catheter insertion. DIAGNOSTIC IMPRESSION: 1. Urinary retention. 2. Benign prostatic hypertrophy. PLAN: The plan for this patient is to maintain the patient on Ann catheterization to gravity drainage for at least 1 week. On the new doses of BPH medications, which includes Flomax 0.8 mg daily and finasteride 5 mg daily. The patient can be discharged to home any time with the Coude catheter gravity drainage and on Flomax 0.4 mg daily plus finasteride 5 mg daily. The patient will be seen in the office followup in 1 week. ADDITIONAL DIAGNOSIS: Chronic kidney disease stage IV at this time. Deny Cunningham MD
--- NOTE | 2018-11-24 07:33 | CP.PCM.PN ---
<Douglas Mays - Last Filed: 11/24/18 19:50> Subjective - Date & Time of Evaluation Date of Evaluation: 11/24/18 Time of Evaluation: 07:00 - Subjective Subjective: PGY-[address] Felipe Patient was seen and examined at bedside this morning. Patient states feeling well, reports no acute events overnight. Patient states his abdomen to feel less distended after hanna insertion. Admits to dry cough since last night. Denies fever, chils, chest pain, sob, n/v/d/c, abdominal pain. Hanna in place, with 400cc of gross hematuria noticed on hanna bag. no other complaints at this time. Objective - Vital Signs/Intake and Output Vital Signs (last 24 hours): Temp Pulse Resp BP Pulse Ox 98.6 F 83 20 160/90 H 97 11/24/18 05:25 11/24/18 05:25 11/24/18 05:25 11/24/18 05:25 11/24/18 05:25 Intake and Output: 11/24/18 11/24/18 06:59 18:59 Output Total 4350 Balance -4350 - Medications Medications: Current Medications Amlodipine Besylate (Norvasc) 10 mg PO DAILY [facility] Aspirin (Ecotrin) 81 mg PO DAILY [facility] Last Admin: 11/23/18 09:50 Dose: 81 mg Clopidogrel Bisulfate (Plavix) 75 mg PO DAILY [facility] Last Admin: 11/23/18 09:50 Dose: 75 mg Famotidine (Pepcid) 20 mg PO DAILY [facility] Last Admin: 11/23/18 09:50 Dose: 20 mg Finasteride (Proscar) 5 mg PO DAILY [facility] Last Admin: 11/23/18 09:51 Dose: 5 mg Heparin Sodium (Porcine) (Heparin) 5,000 units SC Q8 [facility] Last Admin: 11/24/18 05:27 Dose: 5,000 units Hydralazine HCl (Apresoline) 10 mg PO Q6H [facility] Last Admin: 11/24/18 05:26 Dose: 10 mg Sodium Chloride (Sodium Chloride 0.45%) 1,000 mls @ 100 mls/hr IV .Q10H [facility] Last Admin: 11/23/18 22:17 Dose: 100 mls/hr Rosuvastatin Calcium (Crestor) 5 mg PO HS [facility] Last Admin: 11/23/18 22:11 Dose: 5 mg Sennosides (Senokot Tab) 8.6 mg PO DAILY [facility] Last Admin: 11/23/18 12:02 Dose: 8.6 mg Tamsulosin HCl (Flomax) 0.8 mg PO DAILY [facility] - Labs Labs: 11/23/18 09:02 11/23/18 09:02 - Constitutional Appears: Non-toxic, No Acute Distress - Head Exam Head Exam: ATRAUMATIC, NORMAL INSPECTION, NORMOCEPHALIC - Eye Exam Eye Exam: EOMI, Normal appearance - ENT Exam ENT Exam: Mucous Membranes Moist - Neck Exam Neck Exam: Normal Inspection - Respiratory Exam Respiratory Exam: Clear to Ausculation Bilateral, NORMAL BREATHING PATTERN. absent: Decreased Breath Sounds, Rales, Rhonchi, Wheezes - Cardiovascular Exam Cardiovascular Exam: REGULAR RHYTHM, +S1 - GI/Abdominal Exam GI & Abdominal Exam: Soft, Normal Bowel Sounds. absent: Distended, Tenderness - Extremities Exam Extremities Exam: Full ROM, Normal Inspection. absent: Pedal Edema, Tenderness - Back Exam Back Exam: NORMAL INSPECTION - Neurological Exam Neurological Exam: Alert, Awake, Oriented x3 - Psychiatric Exam Psychiatric exam: Normal Affect, Normal Mood - Skin Skin Exam: Dry, Intact, Normal Color, Warm Assessment and Plan - Assessment and Plan (Free Text) Assessment: 68yo M PMH CHF s/p CABG, AICD, CAD, HTN, BPH, presents with chest pain 2/2 non- compliance with medications, which has now resolved. Creatinine level elevated, now with ARF secondary to obstructive uropathy. Plan: ARF 2/2 obstructive uropathy hydronephrosis - Baseline Cr 2018 in low 1s - Cr trend: 3.7 OA -> 3.5 -> 3.4 --> 2.9 today - US Bladder (11/23): mod to severe hydronephrosis. distended bladder with mild to mod diffuse wall thickening suggestive of bladder outlet obstruction, enlarged prostate. - voided 6L in past 24 hours - monitor I/O - Nephro consulted: Dr. Mccray - help appreciated - Uro consulted: Dr. Cunningham - help appreciated - failed Hanna insertion 11/22 - traumatic - successful insertion 11/23 - gross hematuria noticed on hanna bag - patient must keep hanna in place for 1 week and must follow up as outpatient in 1 week. Chest Pain - resolved r/o ACS - serial ROMIs and EKGs negative x3 - Lipid panel: TG 119 Chol 160 LDL 77 HDL 57 - TSH: 1.71, Hgb A1c: 6.0 - CXR (11/21): mild venous congestion. minimal patchy increased markings at the LL base. bi-apical pleural thickening. cardiomegaly. L sided pacemaker. s/p median sternotomy and CABG. venous congestion. - ECHO (11/21): LVEF 35-40%, mod pulm hypertension, mildly dilated ascending aorta (4.2cm) - home ASA 81mg po daily - home Plavix 75mg po daily - Crestor 5mg po HS - Cardio consulted: Dr. Rueda - help appreciated Hypertension - hold Ramipril 2/2 ARF - Hydralazine 10mg po q6 - Amlodipine 10mg po daily - monitor vitals BPH - Flomax 0.8mg po daily - Finasteride 5mg po daily Constipation - Dulcolax x 1 - senokot po daily Cough - Robitussin DM x 1 time - monitor PPx - DVT: Heparin 5000u sc q8, Plavix 75mg po daily, SCDs - GI: Pepcid 20mg po daily - Diet: HHD - IVF: Ns @100cc/hr plan discussed with Dr Destinee Mays, PGY-1 <Kev Felipe - Last Filed: 11/25/18 14:57> Objective - Vital Signs/Intake and Output Vital Signs (last 24 hours): Temp Pulse Resp BP Pulse Ox 98.1 F 81 20 122/74 98 11/25/18 07:00 11/25/18 07:00 11/25/18 07:00 11/25/18 07:00 11/25/18 07:00 Intake and Output: 11/25/18 11/25/18 06:59 18:59 Intake Total 1280 Output Total 2150 Balance -870 - Medications Medications: Current Medications Amlodipine Besylate (Norvasc) 10 mg PO DAILY [facility] Last Admin: 11/25/18 11:31 Dose: 10 mg Aspirin (Ecotrin) 81 mg PO DAILY [facility] Last Admin: 11/25/18 11:31 Dose: 81 mg Clopidogrel Bisulfate (Plavix) 75 mg PO DAILY [facility] Last Admin: 11/25/18 11:30 Dose: 75 mg Famotidine (Pepcid) 20 mg PO DAILY [facility] Last Admin: 11/25/18 11:31 Dose: 20 mg Finasteride (Proscar) 5 mg PO DAILY [facility] Last Admin: 11/25/18 11:30 Dose: 5 mg Heparin Sodium (Porcine) (Heparin) 5,000 units SC Q8 [facility] Last Admin: 11/25/18 13:28 Dose: 5,000 units Sodium Chloride (Sodium Chloride 0.45%) 1,000 mls @ 100 mls/hr IV .Q10H [facility] Last Admin: 11/25/18 14:46 Dose: Not Given Rosuvastatin Calcium (Crestor) 5 mg PO HS [facility] Last Admin: 11/24/18 21:43 Dose: 5 mg Sennosides (Senokot Tab) 8.6 mg PO DAILY [facility] Last Admin: 11/25/18 11:30 Dose: 8.6 mg Tamsulosin HCl (Flomax) 0.8 mg PO DAILY [facility] Last Admin: 11/25/18 11:30 Dose: 0.8 mg - Labs Labs: 11/25/18 06:42 11/25/18 06:42 Attending/Attestation - Attestation I have personally seen and examined this patient.: Yes I have fully participated in the care of the patient.: Yes I have reviewed all pertinent clinical information, including history, physical exam and plan: Yes Notes (Text): ARF 2/2 obstructive uropathy hydronephrosis
[2018-11-24] MEDS: Sodium Chloride 0.45% 1,000 ML IV SCH ×3 (08:01→17:53)
[2018-11-24] MEDS ORDERED: guaiFENesin DM 200 mg-20 mg/10 ml UD PO ONE (08:30)
[2018-11-24 08:39] LABS: BASO % 0.4 % (0.0-2.0); EOS # 0.1 K/uL (0.0-0.7); EOS % 1.1 % (0.0-4.0); HEMOGLOBIN 11.3 g/dL (12.0-18.0); LYMPH # 0.5 K/uL (1.0-4.3); MEAN CELL VOLUME 97.2 fL (80.0-94.0); MEAN CORPUSCULAR HEMOGLOBIN 32.2 pg (27.0-31.0); MEAN CORPUSCULAR HGB CONC 33.1 g/dL (33.0-37.0); MONO # 0.4 K/uL (0.0-0.8); MONO % 7.7 % (0.0-10.0); NEUT # 4.3 K/uL (1.8-7.0); NEUT % 80.8 % (50.0-75.0); NRBC % 0.1 % (0.0-2.0); RBC 3.53 Mil/uL (4.40-5.90); RED CELL DISTRIBUTION WIDTH 13.1 % (11.5-14.5); WHITE BLOOD COUNT 5.3 K/uL (4.8-10.8)
[2018-11-24 08:53] LABS: ALB/GLOB RATIO 1.3 (1.0-2.1); ALBUMIN 3.8 g/dL (3.5-5.0); CALCIUM 8.3 mg/dl (8.6-10.4)
--- NOTE | 2018-11-24 09:01 | CP.PCM.PN ---
Subjective - Date & Time of Evaluation Date of Evaluation: 11/24/18 Time of Evaluation: 09:00 - Subjective Subjective: Progress note for Dr. Mccray Patient was seen and examined at bedside in no acute distress. Patient reports feeling better than yesterday. He has no complaints today and feels well. Patient states he had a small BM yesterday, but not today. He denies chest pain, palpitations, dyspnea, abdominal pain, nausea, vomiting, fevers, headaches, dysuria, diarrhea. Objective - Vital Signs/Intake and Output Vital Signs (last 24 hours): Temp Pulse Resp BP Pulse Ox 98.0 F 67 20 101/63 100 11/24/18 07:20 11/24/18 07:20 11/24/18 07:20 11/24/18 07:20 11/24/18 07:20 Intake and Output: 11/24/18 11/24/18 06:59 18:59 Output Total 4350 Balance -4350 - Medications Medications: Current Medications Amlodipine Besylate (Norvasc) 10 mg PO DAILY [facility] Aspirin (Ecotrin) 81 mg PO DAILY [facility] Last Admin: 11/23/18 09:50 Dose: 81 mg Clopidogrel Bisulfate (Plavix) 75 mg PO DAILY [facility] Last Admin: 11/23/18 09:50 Dose: 75 mg Famotidine (Pepcid) 20 mg PO DAILY [facility] Last Admin: 11/23/18 09:50 Dose: 20 mg Finasteride (Proscar) 5 mg PO DAILY [facility] Last Admin: 11/23/18 09:51 Dose: 5 mg Heparin Sodium (Porcine) (Heparin) 5,000 units SC Q8 [facility] Last Admin: 11/24/18 05:27 Dose: 5,000 units Hydralazine HCl (Apresoline) 10 mg PO Q6H [facility] Last Admin: 11/24/18 05:26 Dose: 10 mg Sodium Chloride (Sodium Chloride 0.45%) 1,000 mls @ 100 mls/hr IV .Q10H [facility] Last Admin: 11/24/18 08:01 Dose: Not Given Rosuvastatin Calcium (Crestor) 5 mg PO HS [facility] Last Admin: 11/23/18 22:11 Dose: 5 mg Sennosides (Senokot Tab) 8.6 mg PO DAILY [facility] Last Admin: 11/23/18 12:02 Dose: 8.6 mg Tamsulosin HCl (Flomax) 0.8 mg PO DAILY [facility] - Labs Labs: 11/24/18 08:14 11/24/18 08:14 - Additional Findings Additional findings: - Constitutional Appears: No Acute Distress - Head Exam Head Exam: ATRAUMATIC, NORMAL INSPECTION - Eye Exam Eye Exam: EOMI, Normal appearance - ENT Exam ENT Exam: Mucous Membranes Moist - Respiratory Exam Respiratory Exam: NORMAL BREATHING PATTERN. absent: Rales, Rhonchi, Wheezes, Respiratory Distress - Cardiovascular Exam Cardiovascular Exam: REGULAR RHYTHM, +S1, +S2 Additional comments: Well healed mid sternal scar, pacemaker in left chest wall - GI/Abdominal Exam GI & Abdominal Exam: Firm (suprapubic region), Normal Bowel Sounds. absent: Guarding, Tenderness - Exam Exam: Hanna in place, hematuria. absent: Bladder Distension - Extremities Exam Extremities Exam: Normal Inspection. absent: Pedal Edema, Tenderness - Neurological Exam Neurological Exam: Alert, Awake, Oriented x3 - Psychiatric Exam Psychiatric exam: Normal Affect, Normal Mood - Skin Skin Exam: Dry, Normal Color, Warm Assessment and Plan - Assessment and Plan (Free Text) Plan: 68 year old male with a history of CABG, HTN, HLD, and BPH, who presented to the hospital with diarrhea, vomiting, and chest pain. [employer] consulted for KAYLEEN. Acute Renal Failure due to Obstructive Uropathy - Secondary to enlarged prostate - Baseline Cr 1.1 in 10/2017 - Improved since admission (3.7), now 2.9 - UA: negative for protein and blood - Urine Cr 68.1, Urine Na 74 - Bladder US: moderate to severe bilateral hydronephrosis; mild increased echogenicity of the renal cortex suggestive of renal disease; distended urinary bladder demonstrate mild-to moderate diffuse wall thickening suggestive of bladder outlet obstruction; moderately to markedly enlarged prostate w/a total volume 122.8mL. Prostate is enlarged protruding into bladder lumen measuring 6.9x5.8x5.9cm. - Hanna catheter inserted on 11/23/18. Monitor I/Os. (failed attempt to insert hanna on 11/22/18- traumatic) - Urology was consulted, Dr Cunningham; Will f/u recommendations. * Per Urologist, patient must keep hanna in place for 1 week and must follow up as outpatient in 1 week. Hypertension - Hold home medication: Ramipril, due to ARF - Continue Hydralazine 10mg PO Q6 and Amlodipine 10mg PO Daily (increased amlodipine from 2.5mg on 11/23/18) Benign Prostatic Hypertrophy - Increased home medication to Flomax 0.8mg PO daily - Started Finasteride 5mg PO daily Case discussed with Dr. Mahendra Mullen, PGY2
[2018-11-24] MEDS ORDERED: Bisacodyl 5mg EC Tab PO ONE (12:03)
[2018-11-24] MEDS ORDERED: Magnesium Sulfate 1 gm in D5W 1 GM/100 ML BAG IVPB ONE (14:00)
[2018-11-25 06:51] LABS: BASO % 0.4 % (0.0-2.0); EOS % 0.4 % (0.0-4.0); HEMOGLOBIN 11.3 g/dL (12.0-18.0); LYMPH # 0.8 K/uL (1.0-4.3); LYMPH % 18.3 % (20.0-40.0); MEAN CELL VOLUME 96.9 fL (80.0-94.0); MEAN CORPUSCULAR HEMOGLOBIN 31.3 pg (27.0-31.0); MEAN CORPUSCULAR HGB CONC 32.4 g/dL (33.0-37.0); MEAN PLATELET VOLUME 9.5 fL (7.2-11.7); MONO # 0.4 K/uL (0.0-0.8); MONO % 9.6 % (0.0-10.0); NEUT # 3.2 K/uL (1.8-7.0); NEUT % 71.3 % (50.0-75.0); RBC 3.61 Mil/uL (4.40-5.90); RED CELL DISTRIBUTION WIDTH 13.3 % (11.5-14.5); WHITE BLOOD COUNT 4.5 K/uL (4.8-10.8)
[2018-11-25 07:46] LABS: ALB/GLOB RATIO 1.3 (1.0-2.1); ALBUMIN 3.8 g/dL (3.5-5.0)
--- NOTE | 2018-11-25 09:27 | CP.PCM.PN ---
Subjective - Date & Time of Evaluation Date of Evaluation: 11/25/18 Time of Evaluation: 09:26 - Subjective Subjective: Progress note for Dr. Mccray Patient was seen and examined at bedside in no acute distress. Patient reports feeling welll and has no complaints except for a dry cough. He denies chest pain, palpitations, dyspnea, nausea, vomiting, abdominal pain, diarrhea, constipation, fevers, chills, headaches, back pain, leg pain/swelling. Objective - Vital Signs/Intake and Output Vital Signs (last 24 hours): Temp Pulse Resp BP Pulse Ox 98.1 F 81 20 122/74 98 11/25/18 07:00 11/25/18 07:00 11/25/18 07:00 11/25/18 07:00 11/25/18 07:00 Intake and Output: 11/25/18 11/25/18 06:59 18:59 Intake Total 1280 Output Total 2150 Balance -870 - Medications Medications: Current Medications Amlodipine Besylate (Norvasc) 10 mg PO DAILY [facility] Last Admin: 11/24/18 10:25 Dose: 10 mg Aspirin (Ecotrin) 81 mg PO DAILY [facility] Last Admin: 11/24/18 10:25 Dose: 81 mg Clopidogrel Bisulfate (Plavix) 75 mg PO DAILY [facility] Last Admin: 11/24/18 10:25 Dose: 75 mg Famotidine (Pepcid) 20 mg PO DAILY [facility] Last Admin: 11/24/18 10:25 Dose: 20 mg Finasteride (Proscar) 5 mg PO DAILY [facility] Last Admin: 11/24/18 10:25 Dose: 5 mg Heparin Sodium (Porcine) (Heparin) 5,000 units SC Q8 [facility] Last Admin: 11/25/18 06:05 Dose: 5,000 units Hydralazine HCl (Apresoline) 10 mg PO Q6H [facility] Last Admin: 11/25/18 06:05 Dose: 10 mg Sodium Chloride (Sodium Chloride 0.45%) 1,000 mls @ 100 mls/hr IV .Q10H [facility] Last Admin: 11/24/18 17:53 Dose: 100 mls/hr Rosuvastatin Calcium (Crestor) 5 mg PO HS [facility] Last Admin: 11/24/18 21:43 Dose: 5 mg Sennosides (Senokot Tab) 8.6 mg PO DAILY [facility] Last Admin: 11/24/18 10:25 Dose: 8.6 mg Tamsulosin HCl (Flomax) 0.8 mg PO DAILY [facility] Last Admin: 11/24/18 10:25 Dose: 0.8 mg - Labs Labs: 11/25/18 06:42 11/25/18 06:42 - Additional Findings Additional findings: - Constitutional Appears: No Acute Distress - Head Exam Head Exam: ATRAUMATIC, NORMAL INSPECTION - Eye Exam Eye Exam: EOMI, Normal appearance - ENT Exam ENT Exam: Mucous Membranes Moist - Respiratory Exam Respiratory Exam: NORMAL BREATHING PATTERN. absent: Rales, Rhonchi, Wheezes, Respiratory Distress - Cardiovascular Exam Cardiovascular Exam: REGULAR RHYTHM, +S1, +S2 Additional comments: Well healed mid sternal scar, pacemaker in left chest wall - GI/Abdominal Exam GI & Abdominal Exam: Firm (suprapubic region), Normal Bowel Sounds. absent: Guarding, Tenderness - Exam Exam: Hanna in place, hematuria. absent: Bladder Distension - Extremities Exam Extremities Exam: Normal Inspection. absent: Pedal Edema, Tenderness - Neurological Exam Neurological Exam: Alert, Awake, Oriented x3 - Psychiatric Exam Psychiatric exam: Normal Affect, Normal Mood - Skin Skin Exam: Dry, Normal Color, Warm Assessment and Plan - Assessment and Plan (Free Text) Plan: 68 year old male with a history of CABG, HTN, HLD, and BPH, who presented to the hospital with diarrhea, vomiting, and chest pain. [employer] consulted for KAYLEEN. Acute Renal Failure due to Obstructive Uropathy - Secondary to enlarged prostate - Baseline Cr 1.1 in 10/2017 - Improved since admission (3.7), now 2.8 - Polyuric, hematuric; continue fluid replacement; flush cath twice per shift. - UA: negative for protein and blood - Urine Cr 68.1, Urine Na 74 - Bladder US: moderate to severe bilateral hydronephrosis; mild increased echogenicity of the renal cortex suggestive of renal disease; distended urinary bladder demonstrate mild-to moderate diffuse wall thickening suggestive of bladder outlet obstruction; moderately to markedly enlarged prostate w/a total volume 122.8mL. Prostate is enlarged protruding into bladder lumen measuring 6.9x5.8x5.9cm. - Hanna catheter inserted on 11/23/18. Monitor I/Os. (failed attempt to insert hanna on 11/22/18- traumatic) - Urology was consulted, Dr Cunningham; Will f/u recommendations. * Per Urologist, patient must keep hanna in place for 1 week and must follow up as outpatient in 1 week. Hypertension - Hold home medication: Ramipril, due to ARF - Discontinued Hydralazine 10mg PO Q6 to avoid hypotension - Continue Amlodipine 10mg PO Daily (increased amlodipine from 2.5mg on 11/23/18) Benign Prostatic Hypertrophy - Increased home medication to Flomax 0.8mg PO daily - Started Finasteride 5mg PO daily Case discussed with Dr. Mahendra Mullen, PGY2
--- NOTE | 2018-11-25 09:58 | CP.PCM.PN ---
<Helen Sewell Y - Last Filed: 11/25/18 14:59> Subjective - Date & Time of Evaluation Date of Evaluation: 11/25/18 Time of Evaluation: 07:15 - Subjective Subjective: PGY-1 Medicine Progress note for Dr. Felipe Patient was seen and examined today at bedside in no acute distress. Nurse reports no overnight events. Patient reports an intermittent dry cough for the last 2 days, which has resolved. His Ann continues to collect pink tinged urine, although less red than yesterday. Denies chest pain, palpitations, shortness of breath, n/v, abdominal pain, c/d, leg swelling. Objective - Vital Signs/Intake and Output Vital Signs (last 24 hours): Temp Pulse Resp BP Pulse Ox 98.1 F 81 20 122/74 98 11/25/18 07:00 11/25/18 07:00 11/25/18 07:00 11/25/18 07:00 11/25/18 07:00 Intake and Output: 11/25/18 11/25/18 06:59 18:59 Intake Total 1280 Output Total 2150 Balance -870 - Medications Medications: Current Medications Amlodipine Besylate (Norvasc) 10 mg PO DAILY [facility] Last Admin: 11/24/18 10:25 Dose: 10 mg Aspirin (Ecotrin) 81 mg PO DAILY [facility] Last Admin: 11/24/18 10:25 Dose: 81 mg Clopidogrel Bisulfate (Plavix) 75 mg PO DAILY [facility] Last Admin: 11/24/18 10:25 Dose: 75 mg Famotidine (Pepcid) 20 mg PO DAILY [facility] Last Admin: 11/24/18 10:25 Dose: 20 mg Finasteride (Proscar) 5 mg PO DAILY [facility] Last Admin: 11/24/18 10:25 Dose: 5 mg Heparin Sodium (Porcine) (Heparin) 5,000 units SC Q8 [facility] Last Admin: 11/25/18 06:05 Dose: 5,000 units Hydralazine HCl (Apresoline) 10 mg PO Q6H [facility] Last Admin: 11/25/18 06:05 Dose: 10 mg Sodium Chloride (Sodium Chloride 0.45%) 1,000 mls @ 100 mls/hr IV .Q10H [facility] Last Admin: 11/24/18 17:53 Dose: 100 mls/hr Rosuvastatin Calcium (Crestor) 5 mg PO HS [facility] Last Admin: 11/24/18 21:43 Dose: 5 mg Sennosides (Senokot Tab) 8.6 mg PO DAILY [facility] Last Admin: 11/24/18 10:25 Dose: 8.6 mg Tamsulosin HCl (Flomax) 0.8 mg PO DAILY [facility] Last Admin: 11/24/18 10:25 Dose: 0.8 mg - Labs Labs: 11/25/18 06:42 11/25/18 06:42 - Constitutional Appears: Well, No Acute Distress - Head Exam Head Exam: ATRAUMATIC, NORMOCEPHALIC - Eye Exam Eye Exam: EOMI, PERRL Pupil Exam: NORMAL ACCOMODATION - ENT Exam ENT Exam: Mucous Membranes Moist - Respiratory Exam Respiratory Exam: Clear to Ausculation Bilateral, NORMAL BREATHING PATTERN. absent: Rales, Rhonchi, Wheezes - Cardiovascular Exam Cardiovascular Exam: REGULAR RHYTHM, +S1, +S2. absent: Gallop, Rubs, Murmur - GI/Abdominal Exam GI & Abdominal Exam: Soft, Normal Bowel Sounds. absent: Tenderness - Exam Exam: absent: Bladder Distension Additional comments: Ann in place, draining hematuria easily - Extremities Exam Extremities Exam: Full ROM, Normal Capillary Refill. absent: Pedal Edema Additional comments: IV access in L AC pulses palpable bilaterally (radial, DP) - Back Exam Back Exam: absent: CVA tenderness (L), CVA tenderness (R) - Neurological Exam Neurological Exam: Alert, Awake, Oriented x3 - Psychiatric Exam Psychiatric exam: Normal Affect, Normal Mood - Skin Skin Exam: Dry, Intact, Normal Color, Warm Assessment and Plan - Assessment and Plan (Free Text) Assessment: 68yo M PMH CHF s/p CABG, AICD, CAD, HTN, BPH, presents with chest pain 2/2 non- compliance with medications, which has now resolved. He currently is in KAYLEEN 2/2 hydronephrosis, s/p traumatic Ann insertion attempt 11/22 and successful Ann insertion 11/23. Plan: KAYLEEN 2/2 hydronephrosis - Baseline Cr 2018 in low 1s - Cr trend: 3.7 OA -> 3.5 -> 3.4 today - US Bladder (11/23): mod to severe hydronephrosis. distended bladder with mild to mod diffuse wall thickening suggestive of bladder outlet obstruction, enlarged prostate. - Patient was still retaining on post void bladder scan. Voided almost 2L with Ann. - monitor I/O - Nephro consulted: Dr. Mccray - help appreciated - Uro consulted: Dr. Cunningham - help appreciated - failed Ann insertion 11/22 - traumatic - successful insertion 11/23 - Ann will have to stay in at least 1 week, and follow up as outpatient in 1 week Chest Pain - resolved r/o ACS - serial ROMIs and EKGs negative x3 - Lipid panel: TG 119 Chol 160 LDL 77 HDL 57 - TSH: 1.71, Hgb A1c: 6.0 - CXR (11/21): mild venous congestion. minimal patchy increased markings at the LL base. bi-apical pleural thickening. cardiomegaly. L sided pacemaker. s/p median sternotomy and CABG. venous congestion. - ECHO (11/21): LVEF 35-40%, mod pulm hypertension, mildly dilated ascending aorta (4.2cm) - home ASA 81mg po daily - home Plavix 75mg po daily - Crestor 5mg po HS - Cardio consulted: Dr. Rueda - help appreciated Hypertension - hold home Ramipril 2/2 KAYLEEN - Amlodipine 2.5mg po daily - stopped Hydralazine 10mg po q6 - monitor vitals, avoid hypotension BPH - Flomax 0.8mg po daily - Finasteride 5mg po daily PPx - DVT: Heparin 5000u sc q8, Plavix 75mg po daily, SCDs - GI: Pepcid 20mg po daily, Senokot 8.6mg po daily - Diet: HHD - IVF: stopped - PT/OT d/w Dr. Destinee Sewell PGY-1 <Kev Felipe - Last Filed: 11/25/18 19:11> Objective - Vital Signs/Intake and Output Vital Signs (last 24 hours): Temp Pulse Resp BP Pulse Ox 98.1 F 76 20 109/69 96 11/25/18 15:00 11/25/18 15:00 11/25/18 15:00 11/25/18 15:00 11/25/18 15:00 Intake and Output: 11/25/18 11/26/18 18:59 06:59 Intake Total 1200 Output Total 1000 Balance 200 - Medications Medications: Current Medications Amlodipine Besylate (Norvasc) 10 mg PO DAILY [facility] Last Admin: 11/25/18 11:31 Dose: 10 mg Aspirin (Ecotrin) 81 mg PO DAILY [facility] Last Admin: 11/25/18 11:31 Dose: 81 mg Clopidogrel Bisulfate (Plavix) 75 mg PO DAILY [facility] Last Admin: 11/25/18 11:30 Dose: 75 mg Famotidine (Pepcid) 20 mg PO DAILY [facility] Last Admin: 11/25/18 11:31 Dose: 20 mg Finasteride (Proscar) 5 mg PO DAILY [facility] Last Admin: 11/25/18 11:30 Dose: 5 mg Heparin Sodium (Porcine) (Heparin) 5,000 units SC Q8 [facility] Last Admin: 11/25/18 13:28 Dose: 5,000 units Sodium Chloride (Sodium Chloride 0.45%) 1,000 mls @ 100 mls/hr IV .Q10H [facility] Last Admin: 11/25/18 14:46 Dose: Not Given Rosuvastatin Calcium (Crestor) 5 mg PO HS [facility] Last Admin: 11/24/18 21:43 Dose: 5 mg Sennosides (Senokot Tab) 8.6 mg PO DAILY [facility] Last Admin: 11/25/18 11:30 Dose: 8.6 mg Tamsulosin HCl (Flomax) 0.8 mg PO DAILY [facility] Last Admin: 11/25/18 11:30 Dose: 0.8 mg - Labs Labs: 11/25/18 06:42 11/25/18 06:42 Attending/Attestation - Attestation I have personally seen and examined this patient.: Yes I have fully participated in the care of the patient.: Yes I have reviewed all pertinent clinical information, including history, physical exam and plan: Yes Notes (Text): KAYLEEN 2/2 hydronephrosis
[2018-11-25] MEDS: Sodium Chloride 0.45% 1,000 ML IV SCH ×2 (11:31→14:46)
[2018-11-26] MEDS: Sodium Chloride 0.45% 1,000 ML IV SCH ×3 (00:15→20:30)
--- NOTE | 2018-11-26 03:43 | CP.PCM.PN ---
<Funmilayo Carson - Last Filed: 11/26/18 05:41> Subjective - Date & Time of Evaluation Date of Evaluation: 11/26/18 Time of Evaluation: 05:30 - Subjective Subjective: Patient examined at bedside. No acute overnight events. Patient reports he continues to have reddish urine. Denies further complaints at this time including chest pain, SOB, nausea, diarrhea. Objective - Vital Signs/Intake and Output Vital Signs (last 24 hours): Temp Pulse Resp BP Pulse Ox 98.0 F 75 20 116/74 97 11/25/18 23:28 11/25/18 23:28 11/25/18 23:28 11/25/18 23:28 11/25/18 23:28 Intake and Output: 11/25/18 11/26/18 18:59 06:59 Intake Total 1200 1040 Output Total 1000 1000 Balance 200 40 - Medications Medications: Current Medications Amlodipine Besylate (Norvasc) 10 mg PO DAILY [facility] Last Admin: 11/25/18 11:31 Dose: 10 mg Aspirin (Ecotrin) 81 mg PO DAILY [facility] Last Admin: 11/25/18 11:31 Dose: 81 mg Clopidogrel Bisulfate (Plavix) 75 mg PO DAILY [facility] Last Admin: 11/25/18 11:30 Dose: 75 mg Famotidine (Pepcid) 20 mg PO DAILY [facility] Last Admin: 11/25/18 11:31 Dose: 20 mg Finasteride (Proscar) 5 mg PO DAILY [facility] Last Admin: 11/25/18 11:30 Dose: 5 mg Heparin Sodium (Porcine) (Heparin) 5,000 units SC Q8 [facility] Last Admin: 11/25/18 13:28 Dose: 5,000 units Sodium Chloride (Sodium Chloride 0.45%) 1,000 mls @ 100 mls/hr IV .Q10H [facility] Last Admin: 11/25/18 14:46 Dose: Not Given Rosuvastatin Calcium (Crestor) 5 mg PO HS [facility] Last Admin: 11/25/18 21:18 Dose: 5 mg Sennosides (Senokot Tab) 8.6 mg PO DAILY [facility] Last Admin: 11/25/18 11:30 Dose: 8.6 mg Tamsulosin HCl (Flomax) 0.8 mg PO DAILY [facility] Last Admin: 11/25/18 11:30 Dose: 0.8 mg - Labs Labs: 11/25/18 06:42 11/25/18 06:42 - Constitutional Appears: Non-toxic, No Acute Distress - Head Exam Head Exam: ATRAUMATIC, NORMAL INSPECTION, NORMOCEPHALIC - Eye Exam Eye Exam: EOMI, Normal appearance - ENT Exam ENT Exam: Mucous Membranes Moist, Normal Exam - Respiratory Exam Respiratory Exam: Clear to Ausculation Bilateral, NORMAL BREATHING PATTERN - Cardiovascular Exam Cardiovascular Exam: REGULAR RHYTHM, +S1, +S2 - GI/Abdominal Exam GI & Abdominal Exam: Soft, Normal Bowel Sounds. absent: Distended, Tenderness - Exam Additional comments: hanna draining red tinged urine - Extremities Exam Extremities Exam: Normal Inspection. absent: Calf Tenderness, Pedal Edema - Neurological Exam Neurological Exam: Alert, Awake, Oriented x3 - Psychiatric Exam Psychiatric exam: Normal Affect, Normal Mood - Skin Skin Exam: Dry, Intact, Normal Color, Warm Assessment and Plan - Assessment and Plan (Free Text) Assessment: 68 year old male w/ PMHx of CHF, AICD, CAD s/p CABG, HTN, BPH, presenting for evaluation of chest pain(resolved), currently admitted for treatment KAYLEEN 2/2 obstructive uropathy. Plan: KAYLEEN 2/2 obstructive uropathy BPH US Bladder (11/22): mod to severe hydronephrosis. distended bladder with mild to mod diffuse wall thickening suggestive of bladder outlet obstruction, enlarged prostate monitor I/O Nephro consult, Dr. Mccray Uro consult, Dr. Cunningham - failed Hanna insertion 11/22 - persistent hematuria 2/2 traumatic insertion; hgb stable and WNL - successful insertion 11/23 - Hanna will have to stay in at least 1 week, and follow up as outpatient in 1 week NS @100 I/Os BPH tx continue home flomax 0.8mg po qd finasteride 5mg po qd HTN Norvasc 10mg po qd hold home Ramipril 2/2 KAYLEEN BP stable and WNL Chest Pain - resolved 2/2 medication non-compliance ROMIs negative x3 Lipid panel: TG 119 Chol 160 LDL 77 HDL 57 TSH: 1.71, Hgb A1c: 6.0 CXR (11/21): mild venous congestion. minimal patchy increased markings at the LL base. bi-apical pleural thickening. cardiomegaly. L sided pacemaker. s/p median sternotomy and CABG. venous congestion. ECHO (11/21): LVEF 35-40%, mod pulm hypertension, mildly dilated ascending aorta (4.2cm) home ASA 81mg po qd-held 2/2 hematuria home Plavix 75mg po qd-held 2/2 hematuria Crestor 5mg po HS Cardio consult, Dr. Rueda Ppx VTE: SCDs, heparin 5000 q8-held 2/2 hematuria GI: pepcid 20mg po qd HHD PT/OT Plan of care AC held at request of Dr. Cunningham 2/2 hematuria; approved by Dr. Rueda -Funmilayo Carson, PGY-1 <Yeyo Hanley - Last Filed: 11/26/18 19:33> Objective - Vital Signs/Intake and Output Vital Signs (last 24 hours): Temp Pulse Resp BP Pulse Ox 98.3 F 79 18 107/71 97 11/26/18 16:00 11/26/18 16:00 11/26/18 16:00 11/26/18 16:00 11/26/18 16:00 Intake and Output: 11/26/18 11/27/18 18:59 06:59 Output Total 1100 Balance -1100 - Medications Medications: Current Medications Amlodipine Besylate (Norvasc) 10 mg PO DAILY [facility] Last Admin: 11/26/18 09:48 Dose: 10 mg Aspirin (Ecotrin) 81 mg PO DAILY [facility] Last Admin: 11/25/18 11:31 Dose: 81 mg Clopidogrel Bisulfate (Plavix) 75 mg PO DAILY [facility] Last Admin: 11/25/18 11:30 Dose: 75 mg Famotidine (Pepcid) 20 mg PO DAILY [facility] Last Admin: 11/26/18 09:48 Dose: 20 mg Finasteride (Proscar) 5 mg PO DAILY [facility] Last Admin: 11/26/18 09:48 Dose: 5 mg Heparin Sodium (Porcine) (Heparin) 5,000 units SC Q8 [facility] Last Admin: 11/25/18 13:28 Dose: 5,000 units Sodium Chloride (Sodium Chloride 0.45%) 1,000 mls @ 100 mls/hr IV .Q10H [facility] Last Admin: 11/26/18 07:04 Dose: 100 mls/hr Rosuvastatin Calcium (Crestor) 5 mg PO [facility] Last Admin: 11/25/18 21:18 Dose: 5 mg Sennosides (Senokot Tab) 8.6 mg PO DAILY [facility] Last Admin: 11/26/18 09:47 Dose: 8.6 mg Tamsulosin HCl (Flomax) 0.8 mg PO DAILY [facility] Last Admin: 11/26/18 09:48 Dose: 0.8 mg - Labs Labs: 11/26/18 08:26 11/26/18 08:26 Attending/Attestation - Attestation I have personally seen and examined this patient.: Yes I have fully participated in the care of the patient.: Yes I have reviewed all pertinent clinical information, including history, physical exam and plan: Yes Notes (Text): seen and examined this afternoon 1.Acute kidney injury secondary to obstructive uropathy faley cath,follow creatinine 2.BPH 3.CHF,chronic systolic Elevated LFT today follow LFT,hold crestor clinically not congested 4.HTN,CAD,CABG,s/p AICD
[2018-11-26 08:37] LABS: BASO % 0.7 % (0.0-2.0); EOS # 0.2 K/uL (0.0-0.7); HEMOGLOBIN 11.1 g/dL (12.0-18.0); LYMPH # 1.4 K/uL (1.0-4.3); LYMPH % 28.9 % (20.0-40.0); MEAN CORPUSCULAR HEMOGLOBIN 32.5 pg (27.0-31.0); MEAN CORPUSCULAR HGB CONC 33.8 g/dL (33.0-37.0); MEAN PLATELET VOLUME 9.9 fL (7.2-11.7); MONO # 0.4 K/uL (0.0-0.8); MONO % 9.3 % (0.0-10.0); NEUT # 2.7 K/uL (1.8-7.0); NEUT % 57.1 % (50.0-75.0); RBC 3.42 Mil/uL (4.40-5.90); RED CELL DISTRIBUTION WIDTH 12.8 % (11.5-14.5); WHITE BLOOD COUNT 4.7 K/uL (4.8-10.8)
[2018-11-26 08:53] LABS: ALB/GLOB RATIO 1.2 (1.0-2.1); ALBUMIN 3.6 g/dL (3.5-5.0); CALCIUM 8.1 mg/dl (8.6-10.4)
--- NOTE | 2018-11-26 23:56 | CP.PCM.PN ---
Subjective - Date & Time of Evaluation Date of Evaluation: 11/26/18 Time of Evaluation: 12:00 - Subjective Subjective: 68 yo M w/ pmh of htn, CAD s/p CABG, BPH, admitted with acute renal failure secondary to obstructive uropathy; Patient reports feeling well; denies dyspnea; is ambulating; no clots in hanna per nursing staff; Objective - Vital Signs/Intake and Output Vital Signs (last 24 hours): Temp Pulse Resp BP Pulse Ox 98.3 F 79 18 107/71 97 11/26/18 16:00 11/26/18 16:00 11/26/18 16:00 11/26/18 16:00 11/26/18 16:00 Intake and Output: 11/26/18 11/27/18 18:59 06:59 Output Total 1100 1050 Balance -1100 -1050 - Medications Medications: Current Medications Amlodipine Besylate (Norvasc) 10 mg PO DAILY [facility] Last Admin: 11/26/18 09:48 Dose: 10 mg Aspirin (Ecotrin) 81 mg PO DAILY [facility] Last Admin: 11/25/18 11:31 Dose: 81 mg Clopidogrel Bisulfate (Plavix) 75 mg PO DAILY [facility] Last Admin: 11/25/18 11:30 Dose: 75 mg Famotidine (Pepcid) 20 mg PO DAILY [facility] Last Admin: 11/26/18 09:48 Dose: 20 mg Finasteride (Proscar) 5 mg PO DAILY [facility] Last Admin: 11/26/18 09:48 Dose: 5 mg Heparin Sodium (Porcine) (Heparin) 5,000 units SC Q8 [facility] Last Admin: 11/25/18 13:28 Dose: 5,000 units Sodium Chloride (Sodium Chloride 0.45%) 1,000 mls @ 100 mls/hr IV .Q10H [facility] Last Admin: 11/26/18 20:30 Dose: 100 mls/hr Rosuvastatin Calcium (Crestor) 5 mg PO HS [facility] Last Admin: 11/25/18 21:18 Dose: 5 mg Sennosides (Senokot Tab) 8.6 mg PO DAILY [facility] Last Admin: 11/26/18 09:47 Dose: 8.6 mg Tamsulosin HCl (Flomax) 0.8 mg PO DAILY [facility] Last Admin: 11/26/18 09:48 Dose: 0.8 mg - Labs Labs: 11/26/18 08:26 11/26/18 08:26 - Constitutional Appears: Non-toxic, No Acute Distress - Eye Exam Eye Exam: Normal appearance. absent: Scleral icterus - Respiratory Exam Respiratory Exam: Clear to Ausculation Bilateral. absent: Respiratory Distress - Cardiovascular Exam Cardiovascular Exam: RRR, +S1, +S2 - GI/Abdominal Exam GI & Abdominal Exam: Soft. absent: Distended, Tenderness - Extremities Exam Additional comments: no leg edema; - Neurological Exam Neurological Exam: Alert, Awake - Psychiatric Exam Psychiatric exam: Normal Mood. absent: Agitated - Skin Skin Exam: Warm. absent: Cyanosis Assessment and Plan (1) Acute renal failure Assessment & Plan: Renal failure only mildly improved since inserting hanna catheter; polyuria appears to be improving; otherwise stable volume and electrolyte status; -decreasing 1/2NS to 75 cc/hr; -continue to flush hanna every shift to avoid formation of clots (still with mild gross hematuria); -avoid nephrotoxic agents; -continue flomax and finasteride; Status: Acute (2) Hypertension Assessment & Plan: BP too tightly controlled on norvasc 10, will decrease to 5 mg; hydralazine stopped; Status: Chronic (3) Enlarged prostate Status: Chronic
--- NOTE | 2018-11-27 07:37 | CP.PCM.PN ---
<Funmilayo Carson - Last Filed: 11/27/18 07:39> Subjective - Date & Time of Evaluation Date of Evaluation: 11/27/18 Time of Evaluation: 06:00 - Subjective Subjective: Patient examined at bedside. No acute overnight events. Pt reports he feels well. Reports hematuria is improving, less concentrated since yesterday. Denies further complaints. Objective - Vital Signs/Intake and Output Vital Signs (last 24 hours): Temp Pulse Resp BP Pulse Ox 98.2 F 74 20 116/74 97 11/26/18 23:50 11/26/18 23:50 11/26/18 23:50 11/26/18 23:50 11/26/18 23:50 Intake and Output: 11/27/18 11/27/18 06:59 18:59 Output Total 1950 Balance -1950 - Medications Medications: Current Medications Amlodipine Besylate (Norvasc) 5 mg PO DAILY [facility] Aspirin (Ecotrin) 81 mg PO DAILY [facility] Last Admin: 11/25/18 11:31 Dose: 81 mg Clopidogrel Bisulfate (Plavix) 75 mg PO DAILY [facility] Last Admin: 11/25/18 11:30 Dose: 75 mg Famotidine (Pepcid) 20 mg PO DAILY [facility] Last Admin: 11/26/18 09:48 Dose: 20 mg Finasteride (Proscar) 5 mg PO DAILY [facility] Last Admin: 11/26/18 09:48 Dose: 5 mg Heparin Sodium (Porcine) (Heparin) 5,000 units SC Q8 [facility] Last Admin: 11/25/18 13:28 Dose: 5,000 units Sodium Chloride (Sodium Chloride 0.45%) 1,000 mls @ 75 mls/hr IV .[id number] [facility] Rosuvastatin Calcium (Crestor) 5 mg PO HS [facility] Last Admin: 11/25/18 21:18 Dose: 5 mg Sennosides (Senokot Tab) 8.6 mg PO DAILY [facility] Last Admin: 11/26/18 09:47 Dose: 8.6 mg Tamsulosin HCl (Flomax) 0.8 mg PO DAILY [facility] Last Admin: 11/26/18 09:48 Dose: 0.8 mg - Labs Labs: 11/26/18 08:26 11/26/18 08:26 - Additional Findings Additional findings: - Constitutional Appears: Non-toxic, No Acute Distress - Head Exam Head Exam: ATRAUMATIC, NORMAL INSPECTION, NORMOCEPHALIC - Eye Exam Eye Exam: EOMI, Normal appearance - ENT Exam ENT Exam: Mucous Membranes Moist, Normal Exam - Respiratory Exam Respiratory Exam: Clear to Ausculation Bilateral, NORMAL BREATHING PATTERN - Cardiovascular Exam Cardiovascular Exam: REGULAR RHYTHM, +S1, +S2 - GI/Abdominal Exam GI & Abdominal Exam: Soft, Normal Bowel Sounds. absent: Distended, Tenderness - Exam Additional comments: hanna draining red tinged urine - Extremities Exam Extremities Exam: Normal Inspection. absent: Calf Tenderness, Pedal Edema - Neurological Exam Neurological Exam: Alert, Awake, Oriented x3 - Psychiatric Exam Psychiatric exam: Normal Affect, Normal Mood - Skin Skin Exam: Dry, Intact, Normal Color, Warm Assessment and Plan - Assessment and Plan (Free Text) Assessment: 68 year old male w/ PMHx of CHF, AICD, CAD s/p CABG, HTN, BPH, presenting for evaluation of chest pain(resolved), currently admitted for treatment KAYLEEN 2/2 obstructive uropathy. Plan: KAYLEEN 2/2 obstructive uropathy BPH US Bladder (11/22): mod to severe hydronephrosis. distended bladder with mild to mod diffuse wall thickening suggestive of bladder outlet obstruction, enlarged prostate monitor I/O Nephro consult, Dr. Mccray Uro consult, Dr. Cunningham - failed Hanna insertion 11/22 - persistent hematuria 2/2 traumatic insertion; hgb stable and WNL, hematuria improving - successful insertion 11/23 - Hanna will have to stay in at least 1 week, and follow up as outpatient in 1 week NS @100--->75/hr I/Os BPH tx continue home flomax 0.8mg po qd finasteride 5mg po qd HTN Norvasc 10mg--->5mg po qd hold home Ramipril 2/2 KAYLEEN BP stable and WNL Chest Pain - resolved 2/2 medication non-compliance ROMIs negative x3 Lipid panel: TG 119 Chol 160 LDL 77 HDL 57 TSH: 1.71, Hgb A1c: 6.0 CXR (11/21): mild venous congestion. minimal patchy increased markings at the LL base. bi-apical pleural thickening. cardiomegaly. L sided pacemaker. s/p median sternotomy and CABG. venous congestion. ECHO (11/21): LVEF 35-40%, mod pulm hypertension, mildly dilated ascending aorta (4.2cm) home ASA 81mg po qd-held 2/2 hematuria home Plavix 75mg po qd-held 2/2 hematuria Crestor 5mg po HS Cardio consult, Dr. Rueda Ppx VTE: SCDs, heparin 5000 q8-held 2/2 hematuria GI: pepcid 20mg po qd HHD PT/OT Plan of care AC held at request of Dr. Cunningham 2/2 hematuria; approved by Dr. Rueda -Funmilayo Carson, PGY-1 <Yeyo Hanley - Last Filed: 11/27/18 18:12> Objective - Vital Signs/Intake and Output Vital Signs (last 24 hours): Temp Pulse Resp BP Pulse Ox 97.9 F 70 18 114/71 97 11/27/18 07:00 11/27/18 07:00 11/27/18 07:00 11/27/18 07:00 11/26/18 23:50 Intake and Output: 11/27/18 11/27/18 06:59 18:59 Intake Total 900 Output Total 1950 800 Balance -1950 100 - Medications Medications: Current Medications Amlodipine Besylate (Norvasc) 5 mg PO DAILY [facility] Last Admin: 11/27/18 11:39 Dose: Not Given Aspirin (Ecotrin) 81 mg PO DAILY [facility] Last Admin: 11/25/18 11:31 Dose: 81 mg Clopidogrel Bisulfate (Plavix) 75 mg PO DAILY [facility] Last Admin: 11/25/18 11:30 Dose: 75 mg Famotidine (Pepcid) 20 mg PO DAILY [facility] Last Admin: 11/27/18 09:12 Dose: 20 mg Finasteride (Proscar) 5 mg PO DAILY [facility] Last Admin: 11/27/18 09:13 Dose: 5 mg Heparin Sodium (Porcine) (Heparin) 5,000 units SC Q8 [facility] Last Admin: 11/25/18 13:28 Dose: 5,000 units Sodium Chloride (Sodium Chloride 0.45%) 1,000 mls @ 75 mls/hr IV .[id number] [facility] Last Admin: 11/27/18 13:18 Dose: 75 mls/hr Rosuvastatin Calcium (Crestor) 5 mg PO HS [facility] Last Admin: 11/25/18 21:18 Dose: 5 mg Sennosides (Senokot Tab) 8.6 mg PO DAILY [facility] Last Admin: 11/27/18 09:13 Dose: 8.6 mg Tamsulosin HCl (Flomax) 0.8 mg PO DAILY [facility] Last Admin: 11/27/18 09:12 Dose: 0.8 mg - Labs Labs: 11/27/18 07:47 11/27/18 07:47 Attending/Attestation - Attestation I have personally seen and examined this patient.: Yes I have fully participated in the care of the patient.: Yes I have reviewed all pertinent clinical information, including history, physical exam and plan: Yes Notes (Text): seen and examined,no complain,urine is clearing continue asprin,plavix and hep SQ DW Dr Mccray monitor creatinine-Improvement is not great after faley cath.we will repeat US of kidneys and bladder possible discharge after US assessment continue gentle hydration
[2018-11-27 07:51] LABS: BASO % 0.6 % (0.0-2.0); EOS # 0.2 K/uL (0.0-0.7); EOS % 4.2 % (0.0-4.0); HEMOGLOBIN 11.4 g/dL (12.0-18.0); LYMPH # 1.2 K/uL (1.0-4.3); LYMPH % 28.7 % (20.0-40.0); MEAN CORPUSCULAR HEMOGLOBIN 31.3 pg (27.0-31.0); MEAN CORPUSCULAR HGB CONC 32.6 g/dL (33.0-37.0); MEAN PLATELET VOLUME 9.3 fL (7.2-11.7); MONO # 0.3 K/uL (0.0-0.8); MONO % 7.8 % (0.0-10.0); NEUT # 2.5 K/uL (1.8-7.0); NEUT % 58.7 % (50.0-75.0); NRBC % 0.1 % (0.0-2.0); RBC 3.65 Mil/uL (4.40-5.90); RED CELL DISTRIBUTION WIDTH 13.4 % (11.5-14.5); WHITE BLOOD COUNT 4.2 K/uL (4.8-10.8)
[2018-11-27 08:15] LABS: ALB/GLOB RATIO 1.3 (1.0-2.1); ALBUMIN 3.8 g/dL (3.5-5.0); CALCIUM 8.3 mg/dl (8.6-10.4)
[2018-11-27] MEDS: Sodium Chloride 0.45% 1,000 ML IV SCH ×2 (13:18→21:33)
[2018-11-27 17:00] VITALS: RESP 20
[2018-11-28 07:35] LABS: BASO % 0.7 % (0.0-2.0); EOS # 0.2 K/uL (0.0-0.7); EOS % 3.9 % (0.0-4.0); HEMOGLOBIN 11.6 g/dL (12.0-18.0); LYMPH # 1.4 K/uL (1.0-4.3); LYMPH % 32.4 % (20.0-40.0); MEAN CELL VOLUME 95.6 fL (80.0-94.0); MEAN CORPUSCULAR HEMOGLOBIN 32.4 pg (27.0-31.0); MEAN CORPUSCULAR HGB CONC 33.9 g/dL (33.0-37.0); MEAN PLATELET VOLUME 9.2 fL (7.2-11.7); MONO # 0.4 K/uL (0.0-0.8); MONO % 9.4 % (0.0-10.0); NEUT # 2.4 K/uL (1.8-7.0); NEUT % 53.6 % (50.0-75.0); NRBC % 0.2 % (0.0-2.0); RBC 3.59 Mil/uL (4.40-5.90); RED CELL DISTRIBUTION WIDTH 13.1 % (11.5-14.5); WHITE BLOOD COUNT 4.4 K/uL (4.8-10.8)
[2018-11-28 08:00] LABS: ALB/GLOB RATIO 1.3 (1.0-2.1); ALBUMIN 3.7 g/dL (3.5-5.0); CALCIUM 8.3 mg/dl (8.6-10.4)
--- NOTE | 2018-11-28 09:20 | PN ---
DATE: 11/25/2018 TIME OF FOLLOWUP: Roughly at 5:47 p.m. SUBJECTIVE: The patient is now resting very comfortably and feels much better today. He is tolerating his diet, and he is still draining some pooja colored urine but seems to be improved. At this hour, the patient did take aspirin at home everyday. He is still on aspirin at this time and this should be stopped if possible, and he is also on Heparin subcutaneous, and he is also on Plavix. These medications if possible should be stopped at this time. He is also on finasteride 5 mg daily and tamsulosin 0.8 mg daily for treatment of BPH and urinary retention. PHYSICAL EXAMINATION: VITAL SIGNS: Today, his temperature is 98.1, pulse is 81, blood pressure 122/74, respiratory rate 20, O2 sat on room air is 98%. LABORATORY DATA: On 11/25/2018 shows a CBC with a WBC count of 4.5, hemoglobin of 11.3, hematocrit of 35, platelet count is 130,000. His sodium is 133, potassium 3.9, chloride 101, CO2 of 24, BUN and creatinine 29 and 2.8 with a GFR of 23 indicating chronic kidney disease stage 4 and only slightly improved with the Ann catheter drainage. Calcium is 8. AST of 71, ALT 48, alkaline phosphatase 60. It takes seven days for aspirin to wear off its effect on platelets and it takes more than 10 days for Plavix to wear off regarding platelets. PLAN: Plan for this patient is to maintain the Ann catheter which is a coude catheter to gravity drainage until complete clearing of the urine from blood. Discontinue the aspirin and the Plavix. It will have to be discussed with the medical team. Heparin has a very short half life. Deny Cunningham MD
--- NOTE | 2018-11-28 09:53 | CP.PCM.PN ---
<Helen Sewell Y - Last Filed: 11/28/18 20:13> Subjective - Date & Time of Evaluation Date of Evaluation: 11/28/18 Time of Evaluation: 10:15 - Subjective Subjective: PGY-1 Medicine Progress note for Dr. Prado Patient was seen and examined today at bedside after renal ultrasound. Nurse reports no overnight events. Patient has no new complaints. Denies chest pain, shortness of breath, fevers, chills, abdominal pain, flank pain. The Hanna has been draining clear urine since holding anticoagulation. Objective - Vital Signs/Intake and Output Vital Signs (last 24 hours): Temp Pulse Resp BP Pulse Ox 97.7 F 73 20 127/75 99 11/28/18 08:30 11/28/18 08:30 11/28/18 08:30 11/28/18 08:30 11/28/18 08:30 Intake and Output: 11/28/18 11/28/18 06:59 18:59 Intake Total 600 Output Total 1800 Balance -1200 - Medications Medications: Current Medications Amlodipine Besylate (Norvasc) 5 mg PO DAILY [facility] Last Admin: 11/28/18 09:03 Dose: 5 mg Aspirin (Ecotrin) 81 mg PO DAILY [facility] Last Admin: 11/25/18 11:31 Dose: 81 mg Clopidogrel Bisulfate (Plavix) 75 mg PO DAILY [facility] Last Admin: 11/25/18 11:30 Dose: 75 mg Famotidine (Pepcid) 20 mg PO DAILY [facility] Last Admin: 11/28/18 09:04 Dose: 20 mg Finasteride (Proscar) 5 mg PO DAILY [facility] Last Admin: 11/28/18 09:03 Dose: 5 mg Heparin Sodium (Porcine) (Heparin) 5,000 units SC Q8 [facility] Last Admin: 11/25/18 13:28 Dose: 5,000 units Sodium Chloride (Sodium Chloride 0.45%) 1,000 mls @ 75 mls/hr IV .[id number] [facility] Last Admin: 11/27/18 21:33 Dose: 75 mls/hr Rosuvastatin Calcium (Crestor) 5 mg PO HS [facility] Last Admin: 11/27/18 21:32 Dose: 5 mg Sennosides (Senokot Tab) 8.6 mg PO DAILY [facility] Last Admin: 11/28/18 09:04 Dose: 8.6 mg Tamsulosin HCl (Flomax) 0.8 mg PO DAILY [facility] Last Admin: 11/28/18 09:04 Dose: 0.8 mg - Labs Labs: 11/28/18 07:26 11/28/18 07:26 - Constitutional Appears: Non-toxic, No Acute Distress - Head Exam Head Exam: ATRAUMATIC, NORMOCEPHALIC - Eye Exam Eye Exam: EOMI, PERRL - ENT Exam ENT Exam: Mucous Membranes Moist - Respiratory Exam Respiratory Exam: Clear to Ausculation Bilateral, NORMAL BREATHING PATTERN. absent: Rales, Rhonchi, Wheezes - Cardiovascular Exam Cardiovascular Exam: REGULAR RHYTHM, +S1, +S2. absent: Murmur - GI/Abdominal Exam GI & Abdominal Exam: Soft, Normal Bowel Sounds. absent: Tenderness - Exam Exam: NORMAL INSPECTION (Hanna in place, draining transluscent urine) - Extremities Exam Extremities Exam: Normal Capillary Refill. absent: Tenderness Additional comments: IV access in L UE - Neurological Exam Neurological Exam: Alert, Awake, Oriented x3 - Psychiatric Exam Psychiatric exam: Normal Affect, Normal Mood - Skin Skin Exam: Dry, Normal Color, Warm Assessment and Plan - Assessment and Plan (Free Text) Assessment: 68 year old male w/ PMHx of CHF, AICD, CAD s/p CABG, HTN, BPH, presenting for evaluation of chest pain(resolved), currently admitted for treatment KAYLEEN 2/2 obs tructive uropathy. Plan: KAYLEEN with hydronephrosis 2/2 obstructive BPH - Baseline Cr 2018 in low 1s - US Bladder (11/23): mod to severe hydronephrosis. distended bladder with mild to mod diffuse wall thickening suggestive of bladder outlet obstruction, enlarged prostate. - repeat US Bladder (11/28): pending read. prelim: bilateral hydronephrosis - Patient was still retaining on post void bladder scan. Voided almost 2L with Hanna. - monitor I/O - Nephro consulted: Dr. Mccray - help appreciated - Uro consulted: Dr. Cunningham - help appreciated - failed Hanna insertion 11/22 - traumatic - successful insertion 11/23 - Hanna will have to stay in at least 1 week, and follow up as outpatient in 1 week - trend Cr BPH - Flomax 0.8mg po daily - Finasteride 5mg po daily Chest Pain - resolved r/o ACS - serial ROMIs and EKGs negative x3 - Lipid panel: TG 119 Chol 160 LDL 77 HDL 57 - TSH: 1.71, Hgb A1c: 6.0 - CXR (11/21): mild venous congestion. minimal patchy increased markings at the LL base. bi-apical pleural thickening. cardiomegaly. L sided pacemaker. s/p median sternotomy and CABG. venous congestion. - ECHO (11/21): LVEF 35-40%, mod pulm hypertension, mildly dilated ascending aorta (4.2cm) - home ASA 81mg po daily (held 2/2 hematuria, restarted today) - home Plavix 75mg po daily (held 2/2 hematuria) - Crestor 5mg po HS - Cardio consulted: Dr. Rueda - help appreciated Hypertension - hold home Ramipril 2/2 KAYLEEN - Amlodipine 5mg po daily - stopped Hydralazine 10mg po q6 - monitor vitals, avoid hypotension PPx - DVT: Heparin 5000u sc q8, Plavix 75mg po daily, SCDs (held 2/2 hematuria) - GI: Pepcid 20mg po daily, Senokot 8.6mg po daily - Diet: HHD - IVF: 1/2NS@75 - PT/OT POC: Heparin, ASA, Plavix held 2/[address] Rueda agrees. Restarting ASA today. Will add Plavix tomorrow pending no hematuria ON. d/w Dr. Eve Sewell PGY-1 <Aly Prado - Last Filed: 11/29/18 07:39> Objective - Vital Signs/Intake and Output Vital Signs (last 24 hours): Temp Pulse Resp BP Pulse Ox 98.1 F 69 20 121/79 99 11/28/18 23:45 11/28/18 23:45 11/28/18 23:45 11/28/18 23:45 11/28/18 23:45 Intake and Output: 11/29/18 11/29/18 06:59 18:59 Intake Total 950 Output Total 800 Balance 150 - Medications Medications: Current Medications Amlodipine Besylate (Norvasc) 5 mg PO DAILY [facility] Last Admin: 11/28/18 09:03 Dose: 5 mg Aspirin (Ecotrin) 81 mg PO DAILY [facility] Last Admin: 11/25/18 11:31 Dose: 81 mg Clopidogrel Bisulfate (Plavix) 75 mg PO DAILY [facility] Last Admin: 11/25/18 11:30 Dose: 75 mg Famotidine (Pepcid) 20 mg PO DAILY [facility] Last Admin: 11/28/18 09:04 Dose: 20 mg Finasteride (Proscar) 5 mg PO DAILY [facility] Last Admin: 11/28/18 09:03 Dose: 5 mg Heparin Sodium (Porcine) (Heparin) 5,000 units SC Q8 [facility] Last Admin: 11/25/18 13:28 Dose: 5,000 units Sodium Chloride (Sodium Chloride 0.45%) 1,000 mls @ 75 mls/hr IV .[id number] [facility] Last Admin: 11/29/18 04:55 Dose: 75 mls/hr Rosuvastatin Calcium (Crestor) 5 mg PO HS [facility] Last Admin: 11/28/18 21:10 Dose: 5 mg Sennosides (Senokot Tab) 8.6 mg PO DAILY [facility] Last Admin: 11/28/18 09:04 Dose: 8.6 mg Tamsulosin HCl (Flomax) 0.8 mg PO DAILY [facility] Last Admin: 11/28/18 09:04 Dose: 0.8 mg - Labs Labs: 11/28/18 07:26 11/28/18 07:26 Attending/Attestation - Attestation I have personally seen and examined this patient.: Yes I have fully participated in the care of the patient.: Yes I have reviewed all pertinent clinical information, including history, physical exam and plan: Yes Notes (Text): 11/29/18 07:34 Medical attending: Patient was seen and examined by me as well. Reviewed the above note by the resident and agree with the above. We saw the patient together. As mentioned above the patient reportedly felt well and was asking to leave. His ASA was restarted and if he remains hematuria free then we plan on restarting the plavix again as well. Currently the creatine remains elevated despite the hanna and several days mo nitoring. If he is discharged he will need to go with the hanna and ultimately needs to follow up with urology. The imaging I was informed shows the bladder wall to also be thickened. So at some point will jesse need cytoscopy/biopsy as well. He remains on flomax and finasteride both. Aly Prado
--- NOTE | 2018-11-28 11:11 | US ---
Renal ultrasound HISTORY: Hydronephrosis. COMPARISON: Ultrasound dated 11/22/2018 Technique: Real-time sonography was performed through the kidneys. Findings: Right kidney: 11.1 x 3.4 x 5.6 centimeters. Improved now mild to moderate hydroureteronephrosis. Visualized aorta demonstrates atherosclerotic calcification and plaque. Left kidney: 9.1 x 3.8 x 3.9 centimeters. Persistent moderate to severe left renal hydroureteronephrosis. Ann catheter in the urinary bladder. Urinary bladder wall appears markedly thickened measuring up to 1.2 centimeters concerning for underlying cystitis. Urinary bladder measures 6.4 x 7.2 x 6.2 centimeters, distended up to 147 cc. Impression: 1. Prominent thickening of the urinary bladder wall measuring up to 1.2 centimeters concerning for a cystitis. Clinical correlation. 2. Moderate to severe left and [id number] right hydroureteronephrosis. Correlation with noncontrast CT scan may be helpful if clinically indicated.
[2018-11-28] MEDS: Sodium Chloride 0.45% 1,000 ML IV SCH ×2 (13:27→16:09)
--- NOTE | 2018-11-28 18:36 | CP.PCM.PN ---
Subjective - Date & Time of Evaluation Date of Evaluation: 11/28/18 Time of Evaluation: 13:00 - Subjective Subjective: 68 yo M w/ pmh of htn, CAD s/p CABG, BPH, admitted with acute renal failure secondary to obstructive uropathy; Reports feeling well; no dyspnea, is ambulating; gross hematuria has cleared; Objective - Vital Signs/Intake and Output Vital Signs (last 24 hours): Temp Pulse Resp BP Pulse Ox 97.9 F 74 20 112/72 98 11/28/18 16:00 11/28/18 16:00 11/28/18 16:00 11/28/18 16:00 11/28/18 16:00 Intake and Output: 11/28/18 11/28/18 06:59 18:59 Intake Total 600 920 Output Total 1800 850 Balance -1200 70 - Medications Medications: Current Medications Amlodipine Besylate (Norvasc) 5 mg PO DAILY [facility] Last Admin: 11/28/18 09:03 Dose: 5 mg Aspirin (Ecotrin) 81 mg PO DAILY [facility] Last Admin: 11/25/18 11:31 Dose: 81 mg Clopidogrel Bisulfate (Plavix) 75 mg PO DAILY [facility] Last Admin: 11/25/18 11:30 Dose: 75 mg Famotidine (Pepcid) 20 mg PO DAILY [facility] Last Admin: 11/28/18 09:04 Dose: 20 mg Finasteride (Proscar) 5 mg PO DAILY [facility] Last Admin: 11/28/18 09:03 Dose: 5 mg Heparin Sodium (Porcine) (Heparin) 5,000 units SC Q8 [facility] Last Admin: 11/25/18 13:28 Dose: 5,000 units Sodium Chloride (Sodium Chloride 0.45%) 1,000 mls @ 75 mls/hr IV .[id number] [facility] Last Admin: 11/28/18 16:09 Dose: Not Given Rosuvastatin Calcium (Crestor) 5 mg PO HS [facility] Last Admin: 11/27/18 21:32 Dose: 5 mg Sennosides (Senokot Tab) 8.6 mg PO DAILY [facility] Last Admin: 11/28/18 09:04 Dose: 8.6 mg Tamsulosin HCl (Flomax) 0.8 mg PO DAILY [facility] Last Admin: 11/28/18 09:04 Dose: 0.8 mg - Labs Labs: 11/28/18 07:26 11/28/18 07:26 - Constitutional Appears: Non-toxic, No Acute Distress - Eye Exam Eye Exam: Normal appearance - Respiratory Exam Respiratory Exam: Clear to Ausculation Bilateral. absent: Respiratory Distress - Cardiovascular Exam Cardiovascular Exam: RRR, +S1, +S2 - GI/Abdominal Exam GI & Abdominal Exam: Soft. absent: Distended, Tenderness - Exam Exam: absent: Bladder Distension - Extremities Exam Additional comments: no leg edema; - Neurological Exam Neurological Exam: Alert, Awake - Psychiatric Exam Psychiatric exam: Normal Mood. absent: Agitated Assessment and Plan (1) Acute renal failure Assessment & Plan: Secondary to obstructive uropathy; renal failure not much improved with hanna in place despite having had post-obstructive diuresis; polyuria resolving; repeat renal US done; showing hydronephrosis improving (we expect that it will take time to resolve); however, bladder wall is markedly thickened and bladder is mildly distended despite hanna; may indicate patient has another component to obstruction other than enlarged prostate; needs to be worked up for malignancy as well; -need urology f/u (discussed with primary attending today); -obtaining urine cytology; -continue with IVF (1/2NS at 75 cc/hr); -avoid nephrotoxic agents; -continue flomax and finasteride; Status: Acute (2) Hypertension Assessment & Plan: BP controlled on amlodipine alone, dose decreased to 5 mg, continue same; Status: Chronic (3) Enlarged prostate Assessment & Plan: see above; Status: Chronic
[2018-11-29] MEDS: Sodium Chloride 0.45% 1,000 ML IV SCH (04:55)
--- NOTE | 2018-11-29 11:06 | CP.PCM.DIS ---
<Helen Sewell Y - Last Filed: 11/29/18 17:48> Provider - Provider Date of Admission: 11/21/18 21:37 Attending physician: Aly Prado DO Consults: 11/22/18 00:29 Cardiology Consult Routine Comment: Consulting Provider: Rayshawn Rueda Consulting Physician: Rayshawn Rueda Reason for Consult: hx CABG, off medications for 4 months 11/22/18 11:50 Nephrology Consult Routine Comment: Consulting Provider: Peter Mccray Consulting Physician: Peter Mccray Reason for Consult: KAYLEEN 11/23/18 00:05 Urology Consult Routine Comment: Consulting Provider: Deny Cunningham Consulting Physician: Deny Cunningham Reason for Consult: kayleen, requring hanna per nephro for possible hydro Time Spent in preparation of Discharge (in minutes): 45 Diagnosis - Discharge Diagnosis (1) Acute renal failure Status: Acute (2) Chest pain Status: Acute (3) Distended bladder Status: Acute (4) Enlarged prostate Status: Chronic Hospital Course - Lab Results Lab Results: Most Recent Lab Values WBC 4.4 K/uL (4.8-10.8) L 11/28/18 07:26 RBC 3.59 Mil/uL (4.40-5.90) L 11/28/18 07:26 Hgb 11.6 g/dL (12.0-18.0) L 11/28/18 07:26 Hct 34.3 % (35.0-51.0) L 11/28/18 07:26 MCV 95.6 fL (80.0-94.0) H 11/28/18 07:26 MCH 32.4 pg (27.0-31.0) H 11/28/18 07:26 MCHC 33.9 g/dL (33.0-37.0) 11/28/18 07:26 RDW 13.1 % (11.5-14.5) 11/28/18 07:26 Plt Count 161 K/uL (130-400) 11/28/18 07:26 MPV 9.2 fL (7.2-11.7) 11/28/18 07:26 Neut % (Auto) 53.6 % (50.0-75.0) 11/28/18 07:26 Lymph % (Auto) 32.4 % (20.0-40.0) 11/28/18 07:26 Cooper % (Auto) 9.4 % (0.0-10.0) 11/28/18 07:26 Eos % (Auto) 3.9 % (0.0-4.0) 11/28/18 07:26 Baso % (Auto) 0.7 % (0.0-2.0) 11/28/18 07:26 Neut # (Auto) 2.4 K/uL (1.8-7.0) 11/28/18 07:26 Lymph # (Auto) 1.4 K/uL (1.0-4.3) 11/28/18 07:26 Cooper # (Auto) 0.4 K/uL (0.0-0.8) 11/28/18 07:26 Eos # (Auto) 0.2 K/uL (0.0-0.7) 11/28/18 07:26 Baso # (Auto) 0.0 K/uL (0.0-0.2) 11/28/18 07:26 Sodium 134 mmol/L (132-148) 11/28/18 07:26 Potassium 3.9 mmol/L (3.6-5.2) 11/28/18 07:26 Chloride 103 mmol/L (98-107) 11/28/18 07:26 Carbon Dioxide 24 mmol/L (22-30) 11/28/18 07:26 Anion Gap 11 (10-20) 11/28/18 07:26 BUN 41 mg/dL (9-20) H 11/28/18 07:26 Creatinine 3.0 mg/dL (0.8-1.5) H 11/28/18 07:26 Est GFR ( Amer) 25 11/28/18 07:26 Est GFR (Non-Af Amer) 21 11/28/18 07:26 Random Glucose 99 mg/dL (75-110) 11/28/18 07:26 Hemoglobin A1c 6.0 % (4.2-6.5) 11/22/18 08:43 Calcium 8.3 mg/dl (8.6-10.4) L 11/28/18 07:26 Phosphorus 3.1 mg/dL (2.5-4.5) 11/28/18 07:26 Magnesium 1.7 mg/dL (1.6-2.3) 11/28/18 07:26 Total Bilirubin 0.2 mg/dL (0.2-1.3) 11/28/18 07:26 AST 65 U/L (17-59) H 11/28/18 07:26 ALT 70 U/L (21-72) 11/28/18 07:26 Alkaline Phosphatase 57 U/L (38-126) 11/28/18 07:26 Total Creatine Kinase 85 U/L (55-170) 11/22/18 08:43 CK-MB (Mass) 1.59 ng/mL (0.0-3.38) 11/22/18 08:43 Troponin I 0.0430 ng/mL (0.00-0.120) 11/22/18 08:43 Total Protein 6.7 g/dL (6.3-8.3) 11/28/18 07:26 Albumin 3.7 g/dL (3.5-5.0) 11/28/18 07:26 Globulin 3.0 gm/dL (2.2-3.9) 11/28/18 07:26 Albumin/Globulin Ratio 1.3 (1.0-2.1) 11/28/18 07:26 Triglycerides 119 mg/dL (0-149) 11/22/18 08:43 Cholesterol 160 mg/dL (0-199) 11/22/18 08:43 LDL Cholesterol Direct 77 mg/dL (0-129) 11/22/18 08:43 HDL Cholesterol 57 mg/dL (30-70) 11/22/18 08:43 Lipase 87 U/L (23-300) 11/21/18 20:04 TSH 3rd Generation 1.71 mIU/L (0.46-4.68) 11/22/18 08:43 Urine Color Yellow (YELLOW) 11/22/18 17:41 Urine Clarity Clear (Clear) 11/22/18 17:41 Urine pH 5.0 (5.0-8.0) 11/22/18 17:41 Ur Specific [place] 1.010 (1.003-1.030) 11/22/18 17:41 Urine Protein Negative mg/dL (NEGATIVE) 11/22/18 17:41 Urine Glucose (UA) Normal mg/dL (Normal) 11/22/18 17:41 Urine Ketones Negative mg/dL (NEGATIVE) 11/22/18 17:41 Urine Blood Negative (NEGATIVE) 11/22/18 17:41 Urine Nitrate Negative (NEGATIVE) 11/22/18 17:41 Urine Bilirubin Negative (NEGATIVE) 11/22/18 17:41 Urine Urobilinogen Normal mg/dL (0.2-1.0) 11/22/18 17:41 Ur Leukocyte Esterase Neg Lily/uL (Negative) 11/22/18 17:41 Urine WBC (Auto) 1 /hpf (0-5) 11/22/18 17:41 Urine RBC (Auto) < 1 /hpf (0-3) 11/22/18 17:41 Ur Squamous Epith Cells 1 /hpf (0-5) 11/22/18 17:41 Ur Random Creatinine 68.1 mg/dL 11/22/18 17:41 U Random Total Protein 528 mg/g creat (22-128) H 11/22/18 17:41 Ur Random Sodium 74 mmol/L 11/22/18 17:41 Urine Creatinine 72 mg/dL (20-320) 11/22/18 17:41 Urine Microalbumin 5.0 mg/dL 11/22/18 17:41 Microalb/Creat Ratio 69 (<30) H 11/22/18 17:41 - Hospital Course Hospital Course: 68 M w/ PMhx of CABG, HTN, HLD, BPH presents to hospital for evaluation of diarrhea/ vomiting for 2 days. Patient states he had home cooked food Wednesday and shortly after had several episodes of non bloody, non bilious vomiting along with diarrhea. Patient stated symptoms persisted for 2 days, but now have resolved. Patient came in for evaluation for cause of symptoms. During arrival to hospital, patient had radiating left sided chest paint to L arm with pain reproducible on deep inspiration pain rated as 5/10 w/ pins and needles sensation. Patient reports he has not taken his medications for the last four months as he ran out of refills. At time of H&P patient reports pain having resolved and being asymptomatic. ROMIs and EKGs x3 were negative for ACS and his clinical symptoms improved. ECHO showed LVEF 35-40% with mod pulm hypertension and a 4.2cm mildly dilated ascending aorta. Bladder US showed mod to severe bilateral hydronephrosis and markedly enlarged prostate. Nephro was consulted and found post void scan showed retention. After a failed Hanna insertion, Uro was able to to insert Hanna. Due to persistent blood tinged urine, antiplatelet and anticoagulation were held with Cardio's blessing. The urine stayed transparent to translucent as the medications were added back on stepwise. Repeat Bladder US showed improving hydronephrosis. Patient was offered Hanna removal as approved by Uro, and Nephro, but preferred keeping it on discharge. His hypertension was controlled with amlodipine and hydralazine this admission since his home ramipril was held secondary to KAYLEEN. Primary Diagnosis: Obstructive KAYLEEN, Chest Pain r/o ACS Patient is clear for discharge per Drs. Prado, Mahendra, Octavio. He is being sent home of the following medications: Amlodipine 5mg po daily. Take 1 tab by mouth once a day Aspirin 81mg po daily. Take 1 tab by mouth once a day Clopidogrel 75mg po daily. Take 1 tab by mouth once a day Famotidine 20mg po daily. Take 1 tab by mouth once a day Finasteride 5mg po daily. Take 1 tab by mouth once a day Rosuvastatin 5mg po HS. Take 1 tab by mouth at bedtime Tamsulosin 0.8mg po daily. Take 2 tabs by mouth once a day The two new medications are his increased dosing a Flomax (2 pills at once instead one 1 pill) and Proscar for his BPH. It is why he needs to follow up with Dr. Cunningham for a urologic appointment. He will need one appointment to remove his Hanna and one more for a week later for follow up. His creatinine did not fall as expected and was found to have a thickened bladder wall, so should consider a cystoscopy to check for malignancy. He will also need to [facility] to continued care of his cardiac issues. If his issues continue or worsen, please come back to the ED. Plan was discussed with patient who understood and agreed. This is a summary of the hospital course. For more details please refer to the EMR. - Date & Time of H&P Date of H&P: 11/29/18 Time of H&P: 13:30 Discharge Exam - Head Exam Head Exam: ATRAUMATIC, NORMOCEPHALIC - Eye Exam Eye Exam: EOMI, Normal appearance, PERRL - ENT Exam ENT Exam: Mucous Membranes Moist - Respiratory Exam Respiratory Exam: Clear to PA & Lateral, NORMAL BREATHING PATTERN, UNREMARKABLE. absent: Rales, Rhonchi, Wheezes - Cardiovascular Exam Cardiovascular Exam: REGULAR RHYTHM, +S1, +S2. absent: Systolic Murmur - GI/Abdominal Exam GI & Abdominal Exam: Normal Bowel Sounds, Soft. absent: Tenderness - Exam Exam: NORMAL INSPECTION. absent: Uretheral Discharge, Bladder Distension - Extremities Exam Extremities exam: normal capillary refill - Neurological Exam Neurological exam: Alert, Oriented x3 - Psychiatric Exam Psychiatric exam: Normal Affect, Normal Mood - Skin Skin Exam: Dry, Intact, Normal Color, Warm Discharge Plan - Discharge Medications Prescriptions: amLODIPine [Norvasc] 5 mg PO DAILY #14 tab Aspirin [Ecotrin] 81 mg PO DAILY #14 tabec Clopidogrel [Plavix] 75 mg PO DAILY #14 tab Famotidine [Pepcid] 20 mg PO DAILY #14 tab Finasteride [Proscar] 5 mg PO DAILY #14 tab Rosuvastatin Calcium [Crestor] 5 mg PO HS #14 tab Tamsulosin [Flomax] 0.8 mg PO DAILY #28 cap - Follow Up Plan Condition: STABLE Disposition: HOME/ ROUTINE Instructions: Heart Healthy Diet, Heart Failure, Adult (DC), Chest Pain (DC), Nausea and Vomiting, Adult (DC), Amlodipine, Clopidogrel, Famotidine, Finasteride, Rosuvastatin, Tamsulosin, Acute Kidney Injury (DC) Additional Instructions: Patient is clear for discharge per Mahendra Dangelo, Octavio. He is being sent home of the following medications: Amlodipine 5mg po daily. Take 1 tab by mouth once a day Aspirin 81mg po daily. Take 1 tab by mouth once a day Clopidogrel 75mg po daily. Take 1 tab by mouth once a day Famotidine 20mg po daily. Take 1 tab by mouth once a day Finasteride 5mg po daily. Take 1 tab by mouth once a day Rosuvastatin 5mg po HS. Take 1 tab by mouth at bedtime Tamsulosin 0.8mg po daily. Take 2 tabs by mouth once a day The two new medications are his increased dosing a Flomax (2 pills at once instead one 1 pill) and Proscar for his BPH. It is why he needs to follow up with Dr. Cunningham for a urologic appointment. He will need one appointment to remove his Hanna and one more for a week later for follow up. His creatinine did not fall as expected and was found to have a thickened bladder wall, so should consider a cystoscopy to check for malignancy. He will also need to [facility] to continued care of his cardiac issues. If his issues continue or worsen, please come back to the ED. Plan was discussed with patient who understood and agreed. El paciente est listo para el dunia por los Dres. Mahendra Prado Abramowitz. l est siendo enviado a casa de los siguientes medicamentos: Amlodipina 5 mg po al da. Ai 1 ficha por va oral johnnie vez al da. Aspirina 81 mg po al da. Ai 1 ficha por va oral johnnie vez al da. Clopidogrel 75mg po diario. Ai 1 ficha por va oral johnnie vez al da. Famotidina 20 mg po al da. Ai 1 ficha por va oral johnnie vez al da. Finasteride 5 mg po al da. Ai 1 ficha por va oral johnnie vez al da. Rosuvastatina 5 mg po HS. Mcpherson 1 ficha por va oral al acostarse Tamsulosina 0,8 mg po por da. Maryan 2 tabletas por va oral johnnie vez al da. Los dos nuevos medicamentos son ruvalcaba dosis mayor: un Flomax (2 pastillas a la vez en lugar de 1 pastilla) y Proscar para ruvalcaba BPH. Es por eso que necesita hacer un seguimiento con el Dr. Cunningham para johnnie krystal urolgica. Necesitar johnnie krystal para quitarse ruvalcaba Hanna y johnnie ms para johnnie semana ms tarde para darle seguimiento. Ruvalcaba creatinina no annemarie gabe se esperaba y se encontr que geovanny johnnie pared de la vejiga engrosada, por lo que debera considerar johnnie cistoscopia para detectar malignidad. Tambin deber realizar un seguimiento de ruvalcaba PMD en la [facility] para continuar con el cuidado de emily problemas cardacos. Si emily problemas continan o empeoran, vuelva al ED. El plan fue discutido con el paciente que entendi y estuvo de acuerdo. Referrals: Deny Cunningham MD [Staff Provider] - [facility] [Outside] Clinical Quality Measures - CQM - Heart Failure Ejection Fraction: Less Than 40 % NHAN Inhibitor Prescribed: Yes Beta-Barb Prescribed: None Contraindication/Reason for not providing: bradycardia Angiotensin II Receptor Barb Prescribed: No Contraindication/Reason for not providing: ACEi AnticoagulationTherapy for Atrial Fibrillation/Atrialflutter: Yes Aldosterone Antagonist Prescribed: No Contraindication/Reason for not providing: N/A Hydralazine Nitrate Prescribed: No Contraindication/Reason for not providing: N/A Implantable Cardioverter Defibrillator Therapy: Yes Cardiac Resynchronization Therapy Prescribed: Yes <Aly Prado - Last Filed: 11/29/18 18:25> Provider - Provider Date of Admission: 11/21/18 21:37 Attending physician: Aly Prado DO Consults: 11/22/18 00:29 Cardiology Consult Routine Comment: Consulting Provider: Rayshawn Rueda Consulting Physician: Rayshawn Rueda Reason for Consult: hx CABG, off medications for 4 months 11/22/18 11:50 Nephrology Consult Routine Comment: Consulting Provider: Peter Mccray Consulting Physician: Peter Mccray Reason for Consult: KAYLEEN 11/23/18 00:05 Urology Consult Routine Comment: Consulting Provider: Deny Cunningham Consulting Physician: Deny Cunningham Reason for Consult: kayleen, requring hanna per nephro for possible hydro Hospital Course - Lab Results Lab Results: Most Recent Lab Values WBC 4.2 K/uL (4.8-10.8) L 11/29/18 13:50 RBC 3.40 Mil/uL (4.40-5.90) L 11/29/18 13:50 Hgb 11.4 g/dL (12.0-18.0) L 11/29/18 13:50 Hct 32.5 % (35.0-51.0) L 11/29/18 13:50 MCV 95.4 fL (80.0-94.0) H 11/29/18 13:50 MCH 33.5 pg (27.0-31.0) H 11/29/18 13:50 MCHC 35.1 g/dL (33.0-37.0) 11/29/18 13:50 RDW 12.8 % (11.5-14.5) 11/29/18 13:50 Plt Count 161 K/uL (130-400) 11/29/18 13:50 MPV 9.3 fL (7.2-11.7) 11/29/18 13:50 Neut % (Auto) 58.2 % (50.0-75.0) 11/29/18 13:50 Lymph % (Auto) 28.8 % (20.0-40.0) 11/29/18 13:50 Cooper % (Auto) 9.5 % (0.0-10.0) 11/29/18 13:50 Eos % (Auto) 2.8 % (0.0-4.0) 11/29/18 13:50 Baso % (Auto) 0.7 % (0.0-2.0) 11/29/18 13:50 Neut # (Auto) 2.4 K/uL (1.8-7.0) 11/29/18 13:50 Lymph # (Auto) 1.2 K/uL (1.0-4.3) 11/29/18 13:50 Cooper # (Auto) 0.4 K/uL (0.0-0.8) 11/29/18 13:50 Eos # (Auto) 0.1 K/uL (0.0-0.7) 11/29/18 13:50 Baso # (Auto) 0.0 K/uL (0.0-0.2) 11/29/18 13:50 Sodium 136 mmol/L (132-148) 11/29/18 13:50 Potassium 4.1 mmol/L (3.6-5.2) 11/29/18 13:50 Chloride 106 mmol/L (98-107) 11/29/18 13:50 Carbon Dioxide 22 mmol/L (22-30) 11/29/18 13:50 Anion Gap 12 (10-20) 11/29/18 13:50 BUN 39 mg/dL (9-20) H 11/29/18 13:50 Creatinine 2.7 mg/dL (0.8-1.5) H 11/29/18 13:50 Est GFR ( Amer) 28 11/29/18 13:50 Est GFR (Non-Af Amer) 23 11/29/18 13:50 Random Glucose 124 mg/dL (75-110) H D 11/29/18 13:50 Hemoglobin A1c 6.0 % (4.2-6.5) 11/22/18 08:43 Calcium 8.4 mg/dl (8.6-10.4) L 11/29/18 13:50 Phosphorus 3.1 mg/dL (2.5-4.5) 11/28/18 07:26 Magnesium 1.7 mg/dL (1.6-2.3) 11/28/18 07:26 Total Bilirubin 0.2 mg/dL (0.2-1.3) 11/28/18 07:26 AST 65 U/L (17-59) H 11/28/18 07:26 ALT 70 U/L (21-72) 11/28/18 07:26 Alkaline Phosphatase 57 U/L (38-126) 11/28/18 07:26 Total Creatine Kinase 85 U/L (55-170) 11/22/18 08:43 CK-MB (Mass) 1.59 ng/mL (0.0-3.38) 11/22/18 08:43 Troponin I 0.0430 ng/mL (0.00-0.120) 11/22/18 08:43 Total Protein 6.7 g/dL (6.3-8.3) 11/28/18 07:26 Albumin 3.7 g/dL (3.5-5.0) 11/28/18 07:26 Globulin 3.0 gm/dL (2.2-3.9) 11/28/18 07:26 Albumin/Globulin Ratio 1.3 (1.0-2.1) 11/28/18 07:26 Triglycerides 119 mg/dL (0-149) 11/22/18 08:43 Cholesterol 160 mg/dL (0-199) 11/22/18 08:43 LDL Cholesterol Direct 77 mg/dL (0-129) 11/22/18 08:43 HDL Cholesterol 57 mg/dL (30-70) 11/22/18 08:43 Lipase 87 U/L (23-300) 11/21/18 20:04 TSH 3rd Generation 1.71 mIU/L (0.46-4.68) 11/22/18 08:43 Urine Color Yellow (YELLOW) 11/29/18 14:55 Urine Clarity Hazy (Clear) 11/29/18 14:55 Urine pH 5.0 (5.0-8.0) 11/29/18 14:55 Ur Specific [place] 1.010 (1.003-1.030) 11/29/18 14:55 Urine Protein Negative mg/dL (NEGATIVE) 11/29/18 14:55 Urine Glucose (UA) Normal mg/dL (Normal) 11/29/18 14:55 Urine Ketones Negative mg/dL (NEGATIVE) 11/29/18 14:55 Urine Blood 1+ (NEGATIVE) H 11/29/18 14:55 Urine Nitrate Negative (NEGATIVE) 11/29/18 14:55 Urine Bilirubin Negative (NEGATIVE) 11/29/18 14:55 Urine Urobilinogen Normal mg/dL (0.2-1.0) 11/29/18 14:55 Ur Leukocyte Esterase Neg Lily/uL (Negative) 11/29/18 14:55 Urine WBC (Auto) 2 /hpf (0-5) 11/29/18 14:55 Urine RBC (Auto) 3 /hpf (0-3) 11/29/18 14:55 Ur Squamous Epith Cells < 1 /hpf (0-5) 11/29/18 14:55 Ur Random Creatinine 68.1 mg/dL 11/22/18 17:41 U Random Total Protein 528 mg/g creat (22-128) H 11/22/18 17:41 Ur Random Sodium 74 mmol/L 11/22/18 17:41 Urine Creatinine 72 mg/dL (20-320) 11/22/18 17:41 Urine Microalbumin 5.0 mg/dL 11/22/18 17:41 Microalb/Creat Ratio 69 (<30) H 11/22/18 17:41 Attending/Attestation - Attestation I have personally seen and examined this patient.: Yes I have fully participated in the care of the patient.: Yes I have reviewed all pertinent clinical information, including history, physical exam and plan: Yes Notes (Text): 11/29/18 18:21 Medical attending: Patient was seen and examined by me. Agree with the above note by the resident The patient was asking to go home repeatedly. He denied pain and he has not had hematuria. His Hgb has been stable. He understands he needs to resume taking the ASA and also Plavix The serum creatine has not changed despite having the hanna in. Patient is aware he needs to take the flomax as well as the finasteride. He is also well aware he needs to follow up shortly with urology as well. It was suggested to the patient to have removal of the hanna cathter before leaving - however the patient insisted on having the hanna in and that he would follow up with urology outpatient for the removal. Aly Prado
[2018-11-29 14:03] LABS: BASO % 0.7 % (0.0-2.0); EOS # 0.1 K/uL (0.0-0.7); EOS % 2.8 % (0.0-4.0); HEMOGLOBIN 11.4 g/dL (12.0-18.0); LYMPH # 1.2 K/uL (1.0-4.3); LYMPH % 28.8 % (20.0-40.0); MEAN CELL VOLUME 95.4 fL (80.0-94.0); MEAN CORPUSCULAR HEMOGLOBIN 33.5 pg (27.0-31.0); MEAN CORPUSCULAR HGB CONC 35.1 g/dL (33.0-37.0); MEAN PLATELET VOLUME 9.3 fL (7.2-11.7); MONO # 0.4 K/uL (0.0-0.8); MONO % 9.5 % (0.0-10.0); NEUT # 2.4 K/uL (1.8-7.0); NEUT % 58.2 % (50.0-75.0); RBC 3.4 Mil/uL (4.40-5.90); RED CELL DISTRIBUTION WIDTH 12.8 % (11.5-14.5); WHITE BLOOD COUNT 4.2 K/uL (4.8-10.8)
[2018-11-29 14:23] LABS: CALCIUM 8.4 mg/dl (8.6-10.4)
[2018-11-29 15:09] LABS: SQUAMOUS EPITHIAL < 1 /hpf (0-5); URINE BILIRUBIN NEGATIVE (NEGATIVE); URINE BLOOD 1+ (NEGATIVE); URINE CLARITY Hazy (Clear); URINE COLOR Yellow (YELLOW); URINE GLUCOSE (UA) NORMAL (Normal); URINE LEUKOCYTE ESTERASE NEG Leu/uL (Negative); URINE PROTEIN NEGATIVE (NEGATIVE); URINE UROBILINOGEN NORMAL mg/dL (0.2-1.0)
--- NOTE | 2018-11-29 15:25 | CP.PCM.PN ---
Subjective - Date & Time of Evaluation Date of Evaluation: 11/29/18 Time of Evaluation: 15:25 - Subjective Subjective: Nephrology Progess Note (Dr. Mccray's Service): Patient seen and assessed at bedside. No acute events overnight noted. Patient reports that he is likely being discharged today. He has no current complaints. 12 point ROS unremarkable at this time. Objective - Vital Signs/Intake and Output Vital Signs (last 24 hours): Temp Pulse Resp BP Pulse Ox 97.8 F 68 20 123/76 96 11/29/18 07:15 11/29/18 07:15 11/29/18 07:15 11/29/18 07:15 11/29/18 07:15 Intake and Output: 11/29/18 11/29/18 06:59 18:59 Intake Total 950 1400 Output Total 800 1000 Balance 150 400 - Medications Medications: Current Medications Amlodipine Besylate (Norvasc) 5 mg PO DAILY [facility] Last Admin: 11/29/18 09:38 Dose: 5 mg Aspirin (Ecotrin) 81 mg PO DAILY [facility] Last Admin: 11/29/18 09:38 Dose: 81 mg Clopidogrel Bisulfate (Plavix) 75 mg PO DAILY [facility] Last Admin: 11/25/18 11:30 Dose: 75 mg Famotidine (Pepcid) 20 mg PO DAILY [facility] Last Admin: 11/29/18 09:38 Dose: 20 mg Finasteride (Proscar) 5 mg PO DAILY [facility] Last Admin: 11/29/18 09:39 Dose: 5 mg Heparin Sodium (Porcine) (Heparin) 5,000 units SC Q8 [facility] Last Admin: 11/25/18 13:28 Dose: 5,000 units Rosuvastatin Calcium (Crestor) 5 mg PO HS [facility] Last Admin: 11/28/18 21:10 Dose: 5 mg Sennosides (Senokot Tab) 8.6 mg PO DAILY [facility] Last Admin: 11/29/18 09:38 Dose: 8.6 mg Tamsulosin HCl (Flomax) 0.8 mg PO DAILY [facility] Last Admin: 11/29/18 09:40 Dose: 0.8 mg - Labs Labs: 11/29/18 13:50 11/29/18 13:50 - Constitutional Appears: Non-toxic, No Acute Distress - Head Exam Head Exam: ATRAUMATIC, NORMOCEPHALIC - Eye Exam Eye Exam: EOMI, Normal appearance - ENT Exam ENT Exam: Mucous Membranes Moist - Respiratory Exam Respiratory Exam: Clear to Ausculation Bilateral, NORMAL BREATHING PATTERN - Cardiovascular Exam Cardiovascular Exam: REGULAR RHYTHM, +S1, +S2. absent: Murmur - GI/Abdominal Exam GI & Abdominal Exam: Soft, Normal Bowel Sounds. absent: Tenderness - Extremities Exam Extremities Exam: Full ROM, Normal Capillary Refill, Normal Inspection. absent: Joint Swelling, Pedal Edema - Neurological Exam Neurological Exam: Alert, Awake, Oriented x3 - Psychiatric Exam Psychiatric exam: Normal Affect, Normal Mood - Skin Skin Exam: Dry, Intact, Normal Color, Warm Assessment and Plan - Assessment and Plan (Free Text) Assessment: 68 year old male with a past medical history significant for HTN, CAD s/p CABG, and BPH who presented with ARF secondary to obstructive uropathy. Plan: 1. ARF -Secondary to obstructive uropathy -ARF not improving much despite hanna and post-obstructive diuresis -Hydronephrosis improving on repeat Renal US -Bladder wall remains diffusely thickened and bladder remains distended despite hanna in place -Urine cytology pending -Patient to be discharged with hanna and urology follow up on Wednesday (12/02) as well as follow up with Dr. Mccray in his [facility] 2. HTN -Continue Norvasc 5mg 3. Enlarged Prostate -Continue Flomax and Finasteride Patient seen and case discussed with attending, Dr Mccray. Dimitri Fernandes PGY2
[2018-11-29 16:02] VITALS: BP 119/85; PULSE 85; TEMP 97.9; O2SAT 100
== END 2018-11-29 18:21 | disposition home or self-care (01) | DRG 469 ==
LOC: C.ER 17:58 → C.6T 21:37
PROVIDERS: ADMIT Hospitalist; ATTEND Hospitalist
DX: N17.9 Acute kidney failure, unspecified (principal); I11.0 Hypertensive heart disease with heart failure; I50.22 Chronic systolic (congestive) heart failure; I27.20 Pulmonary hypertension, unspecified; K29.70 Gastritis, unspecified, without bleeding; N40.1 Benign prostatic hyperplasia with lower urinary tract symptoms; N13.8 Other obstructive and reflux uropathy; R19.7 Diarrhea, unspecified; R07.89 Other chest pain; R33.8 Other retention of urine; N13.30 Unspecified hydronephrosis; I25.10 Atherosclerotic heart disease of native coronary artery without angina pectoris; I77.819 Aortic ectasia, unspecified site; R31.0 Gross hematuria; E78.5 Hyperlipidemia, unspecified; Z91.14 Patient's other noncompliance with medication regimen; Z95.1 Presence of aortocoronary bypass graft; Z95.810 Presence of automatic (implantable) cardiac defibrillator; Z79.899 Other long term (current) drug therapy; Z82.49 Family history of ischemic heart disease and other diseases of the circulatory system; Z83.3 Family history of diabetes mellitus

== ENCOUNTER 2018-12-05 13:25 | Emergency (ER) | payer OTHER ==
[2018-12-05 13:26] VITALS: BMI 23.3
--- NOTE | 2018-12-05 15:01 | C.PDOC ---
History Of Present Illness 68 year old male presents to ED with complaint of urinary retention. Patient states that he had his Ann catheter inserted here. He states he went to Dr. Cunningham and was told he had to pay $250 for appointment. Patient came here for catheter removal. Patient denies any abdominal pain, penile pain, and penile discharge. Time Seen by Provider: 12/05/18 13:40 Chief Complaint (Nursing): Male Genitourinary History Per: Patient History/Exam Limitations: no limitations Current Symptoms Are (Timing): Still Present Associated Symptoms: Urinary Symptoms (urinary retention). denies: Fever, Chills Past Medical History Reviewed: Historical Data, Nursing Documentation, Vital Signs Vital Signs: Last Vital Signs Temp 98.4 F 12/05/18 13:31 Pulse 100 H 12/05/18 13:31 Resp 18 12/05/18 13:31 BP 135/83 12/05/18 13:31 Pulse Ox 99 12/05/18 13:31 - Medical History PMH: HTN Denies: Chronic Kidney Disease Surgical History: CABG (quintuple bypass 06/2015) - [employer] Procedures INSERT INDWELLING CATH (11/29/14) RT & LT HEART ANGIOCARD (06/11/15) RT/LEFT HEART CARD CATH (06/11/15) Family History: States: Unknown Family Hx - Social History Hx Tobacco Use: No Hx Alcohol Use: No Hx Substance Use: No - Immunization History Hx Tetanus Toxoid Vaccination: No Hx Influenza Vaccination: No Hx Pneumococcal Vaccination: No Review Of Systems Constitutional: Negative for: Fever, Chills, Weakness Gastrointestinal: Negative for: Abdominal Pain Genitourinary: Positive for: Other (urinary retention). Negative for: Penile Discharge, Penile Pain Neurological: Negative for: Weakness, Numbness, Dizziness Physical Exam - Physical Exam Appears: Well, Non-toxic, No Acute Distress Skin: Normal Color, Warm, Dry Head: Atraumatic, Normacephalic Neck: Normal ROM, Supple Chest: Symmetrical, No Deformity Respiratory: No Accessory Muscle Use Gastrointestinal/Abdominal: Soft, No Tenderness Extremity: Capillary Refill (<2 seconds) Neurological/Psych: Oriented x3, Normal Speech, Normal Cognition ED Course And Treatment O2 Sat by Pulse Oximetry: 99 (in RA) Progress Note: Ann catheter removed with no difficulty. Patient discharged. R e-evaluation. Patient feels better. Discussed results and plan with patient who expresses understanding. All questions answered and there is agreement with the plan to discharge home with instructions. Patient stable for discharge. Return if symptoms persist or worsen. Disposition - Disposition Referrals: Deny Cunningham MD [Staff Provider] - Disposition: HOME/ ROUTINE Disposition Time: 15:01 Condition: STABLE Additional Instructions: Follow up with PMD and Urologist within 1-2 days. Return to ED if feel worse. Instructions: Urinary Retention (DC) Forms: [employer] (Trinidadian) Print Language: POLISH - Clinical Impression Clinical Impression: Encounter for Ann catheter removal - PA / FUNERAL ATTENDANT / Resident Statement MD/DO has reviewed & agrees with the documentation as recorded. (Shaye Ulloa) - Scribe Statement The provider has reviewed the documentation as recorded by the Scribe (Shaye Ulloa) All medical record entries made by the Scribe were at my direction and personally dictated by me. I have reviewed the chart and agree that the record accurately reflects my personal performance of the history, physical exam, medical decision making, and the department course for this patient. I have also personally directed, reviewed, and agree with the discharge instructions and disposition.
[2018-12-05 15:11] VITALS: BP 134/92; PULSE 104; RESP 20; TEMP 99.8
[2018-12-05 20:01] VITALS: O2SAT 99
== END 2018-12-05 15:11 | disposition home or self-care (01) ==
LOC: C.ER 13:25
DX: Z46.6 Encounter for fitting and adjustment of urinary device (principal)

== ENCOUNTER 2018-12-06 17:38 | Emergency (ER) | payer OTHER ==
[2018-12-06 17:38] VITALS: BMI 23.3
[2018-12-06 18:12] VITALS: RESP 18
--- NOTE | 2018-12-06 19:11 | C.PDOC ---
History Of Present Illness 68 year old male with Hx of BPH presents with difficulty urinating since yesterday. Patient reportedly was recently admitted and discharged for obstructive uropathy. He had hanna removed in the ER yesterday, reports inability to void now. Denies fever or other complaints. Time Seen by Provider: 12/06/18 19:07 Chief Complaint (Nursing): Male Genitourinary History Per: Patient History/Exam Limitations: no limitations Onset/Duration Of Symptoms: Days Current Symptoms Are (Timing): Still Present Associated Symptoms: Urinary Symptoms (Inability to void). denies: Fever Alleviating Factors: None Recent travel outside of the [place]: No Past Medical History Reviewed: Historical Data, Nursing Documentation, Vital Signs Vital Signs: Last Vital Signs Temp 98.4 F 12/06/18 18:09 Pulse 95 H 12/06/18 18:09 Resp 18 12/06/18 18:09 BP 124/89 12/06/18 18:09 Pulse Ox 99 12/06/18 18:09 - Medical History PMH: HTN Denies: Chronic Kidney Disease Surgical History: CABG (quintuple bypass 06/2015) - [employer] Procedures INSERT INDWELLING CATH (11/29/14) RT & LT HEART ANGIOCARD (06/11/15) RT/LEFT HEART CARD CATH (06/11/15) Family History: States: Unknown Family Hx - Social History Hx Tobacco Use: No Hx Alcohol Use: No Hx Substance Use: No - Immunization History Hx Tetanus Toxoid Vaccination: No Hx Influenza Vaccination: No Hx Pneumococcal Vaccination: No Review Of Systems Constitutional: Negative for: Fever Cardiovascular: Negative for: Chest Pain, Palpitations Respiratory: Negative for: Cough, Shortness of Breath Gastrointestinal: Negative for: Nausea, Vomiting Genitourinary: Positive for: Other (Inability to void) Neurological: Negative for: Weakness, Numbness Physical Exam - Physical Exam Appears: Non-toxic Skin: Normal Color, Warm Head: Atraumatic, Normacephalic Eye(s): bilateral: Normal Inspection Oral Mucosa: Moist Neck: Normal, Supple Chest: Symmetrical, No Tenderness Cardiovascular: Rhythm Regular Respiratory: Normal Breath Sounds, No Rales, No Rhonchi, No Wheezing Gastrointestinal/Abdominal: Soft, No Tenderness Neurological/Psych: Oriented x3, Normal Speech ED Course And Treatment - Laboratory Results Result Diagrams: 12/06/18 19:45 12/06/18 19:45 O2 Sat by Pulse Oximetry: 99 (Room air) Pulse Ox Interpretation: Normal Medical Decision Making Medical Decision Making: urinary renetion suspect 2/2 bph. After hanna placement patient feels improvement. cr minimal change from baseline. case discussed with urology levi. reviewed labs. advises pt can fu ouptt already on flomax and finaseride. Disposition - Disposition Referrals: [facility] [Outside] [facility] [Outside] Deny Cunningham MD [Staff Provider] - Disposition: HOME/ ROUTINE Disposition Time: 22:00 Condition: STABLE Additional Instructions: return to er with worsening symptoms or concerns. please see urologist in next 1-2 days. Prescriptions: Cefpodoxime [Vantin] 100 mg PO BID #20 tab Instructions: Hanna Catheter, Male, Urinary Retention Forms: [employer] (Kazakh) - Clinical Impression Clinical Impression: Urinary retention - Scribe Statement The provider has reviewed the documentation as recorded by the Scribe Vidal Hernandez All medical record entries made by the Scribe were at my direction and personally dictated by me. I have reviewed the chart and agree that the record accurately reflects my personal performance of the history, physical exam, medical decision making, and the department course for this patient. I have also personally directed, reviewed, and agree with the discharge instructions and disposition.
[2018-12-06] MEDS ORDERED: Sodium Chloride 0.9% 1,000 ML IV SCH (19:45)
[2018-12-06] MEDS ORDERED: Sodium Chloride 0.9% 1,000 ML ONE (19:55)
[2018-12-06 19:59] LABS: BASO % 0.3 % (0.0-2.0); EOS % 0.1 % (0.0-4.0); LYMPH # 0.6 K/uL (1.0-4.3); LYMPH % 6.3 % (20.0-40.0); MEAN CELL VOLUME 95.2 fL (80.0-94.0); MEAN CORPUSCULAR HEMOGLOBIN 31.8 pg (27.0-31.0); MEAN CORPUSCULAR HGB CONC 33.4 g/dL (33.0-37.0); MEAN PLATELET VOLUME 8.7 fL (7.2-11.7); MONO # 0.7 K/uL (0.0-0.8); MONO % 7.2 % (0.0-10.0); NEUT # 8.8 K/uL (1.8-7.0); NEUT % 86.1 % (50.0-75.0); PLATELET COUNT 230 K/uL (130-400); RBC 3.78 Mil/uL (4.40-5.90); RED CELL DISTRIBUTION WIDTH 12.5 % (11.5-14.5); WHITE BLOOD COUNT 10.2 K/uL (4.8-10.8)
[2018-12-06 20:07] LABS: INR 1.1; PROTHROMBIN TIME 12.5 SECONDS (9.7-12.2)
[2018-12-06 20:24] LABS: ALB/GLOB RATIO 1.1 (1.0-2.1); ALBUMIN 4.1 g/dL (3.5-5.0); CALCIUM 9.4 mg/dl (8.6-10.4)
[2018-12-06 20:53] LABS: BANDS 9 % (0-2); EOSINOPHIL 2 % (0-4); LYMPHOCYTE 5 % (20-40); MONOCYTE 4 % (0-10); NEUTROPHIL 80 % (50-75); TOTAL CELLS COUNTED 100
[2018-12-06 20:54] LABS: PLATELET ESTIMATE NORMAL (NORMAL)
[2018-12-06 20:55] LABS: LARGE PLATELETS PRESENT; MICROCYTOSIS SLIGHT; PLATELET CLUMPS PRESENT
[2018-12-06 21:32] LABS: URINE BACTERIA MANY (<OCC); URINE BILIRUBIN NEGATIVE (NEGATIVE); URINE CLARITY Turbid (Clear); URINE COLOR Yellow (YELLOW); URINE GLUCOSE (UA) 1+ mg/dL (Normal); URINE PROTEIN 2+ mg/dL (NEGATIVE); URINE UROBILINOGEN NORMAL mg/dL (0.2-1.0); WBC CLUMPS MANY /hpf
[2018-12-06 21:36] LABS: URINE BLOOD 2+ (NEGATIVE); URINE LEUKOCYTE ESTERASE 3+ Leu/uL (Negative)
[2018-12-06 22:22] VITALS: BP 119/77; PULSE 79; TEMP 98.2
[2018-12-06 22:50] VITALS: O2SAT 99
== END 2018-12-06 22:58 | disposition home or self-care (01) ==
LOC: C.ER 17:38
DX: R33.9 Retention of urine, unspecified (principal); I10 Essential (primary) hypertension; Z95.1 Presence of aortocoronary bypass graft
CPT/HCPCS: 80053; 81001; 85025; 85610; 85730; 99285; J7030

== ENCOUNTER 2019-01-02 11:50 | Emergency (ER) | payer OTHER ==
[2019-01-02 11:51] VITALS: BMI 23.3
[2019-01-02 11:58] VITALS: BP 168/96; PULSE 80; RESP 17; TEMP 98.2; O2SAT 98
--- NOTE | 2019-01-02 15:44 | C.PDOC ---
History Of Present Illness 68 y/o male presents to the ER for urinary catheter removal. Patient was evaluated for urinary retention in [facility] ER on 12/06/18 and he had urinary catheter placement. Patient was discharged and instructed to follow up with urologist. He notes that he is taking his outpatient medications including Flomax however he has not followed up with a urologist as of now.Denies having fever,chills, and vomiting. Time Seen by Provider: 01/02/19 12:06 Chief Complaint (Nursing): Male Genitourinary History Per: Patient History/Exam Limitations: no limitations Past Medical History Reviewed: Historical Data, Nursing Documentation, Vital Signs Vital Signs: Last Vital Signs Temp 98.2 F 01/02/19 11:55 Pulse 80 01/02/19 11:55 Resp 17 01/02/19 11:55 BP 168/96 H 01/02/19 11:55 Pulse Ox 98 01/02/19 11:55 - Medical History PMH: HTN Denies: Chronic Kidney Disease Surgical History: CABG (quintuple bypass 06/2015), Pacemaker - [email or web address] Procedures INSERT INDWELLING CATH (11/29/14) RT & LT HEART ANGIOCARD (06/11/15) RT/LEFT HEART CARD CATH (06/11/15) Family History: States: No Known Family Hx - Social History Hx Tobacco Use: No Hx Alcohol Use: No Hx Substance Use: No - Immunization History Hx Tetanus Toxoid Vaccination: No Hx Influenza Vaccination: No Hx Pneumococcal Vaccination: No Review Of Systems Except As Marked, All Systems Reviewed And Found Negative. Constitutional: Negative for: Fever, Chills Gastrointestinal: Negative for: Nausea, Vomiting Physical Exam - Physical Exam Appears: Non-toxic, No Acute Distress Skin: Normal Color, Warm, Dry Head: Atraumatic, Normacephalic Eye(s): bilateral: Normal Inspection Nose: Normal Oral Mucosa: Moist Neck: Supple Chest: Symmetrical Cardiovascular: Rhythm Regular Respiratory: Normal Breath Sounds, No Rales, No Rhonchi, No Wheezing Gastrointestinal/Abdominal: Normal Exam, Soft, No Tenderness, No Guarding, No Rebound Neurological/Psych: Oriented x3, Normal Speech ED Course And Treatment O2 Sat by Pulse Oximetry: 98 (RA) Pulse Ox Interpretation: Normal Medical Decision Making Medical Decision Making: Plan: --Ann Catheter Removal Disposition - Disposition Referrals: [facility] [Outside] Ramon Montoya MD [Staff Provider] - Disposition: HOME/ ROUTINE Disposition Time: 12:20 Condition: GOOD Additional Instructions: SADI MARIA, thank you for letting us take care of you today. The emergency medical care you received today was directed at your acute symptoms. If you were prescribed any medication, please fill it and take as directed. It may take several days for your symptoms to resolve. Return to the Emergency Department if your symptoms worsen, do not improve, or if you have any other problems. Please contact your doctor or call one of the physicians/clinics you have been referred to that are listed on the Patient Visit Information form that is included in your discharge packet. Bring any paperwork you were given at discharge with you along with any medications you are taking to your follow up visit. Our treatment cannot replace ongoing medical care by a primary care provider outside of the emergency department. Thank you for allowing the [facility] team to be part of your care today. Continue taking your medication as prescribed. Follow up with the urologist in 1-2 days for re-evaluation and further managem ent. SADI MARIA, corrine por dejarnos cuidar de usted hoy. La atencin mdica de emergencia que recibi hoy se dirigi a emily sntomas agudos. Si le recetaron algn medicamento, llnelo y tmelo segn las indicaciones. Los sntomas pueden tardar varios blank en resolverse. Regrese al Departamento de Emergencias si emily sntomas empeoran, no mejoran o si tiene otros problemas. Comunquese con miramontes mdico o llame a donna de los mdicos / clnicas a los que castillo sido referido que figuran en el formulario de Informacin de visita al paciente que se incluye en miramontes paquete de dunia. Lleve todos los documentos que recibi al momento del dunia junto con los medicamentos que est tomando para miramontes visita de seguimiento. Nuestro tratamiento no puede reemplazar la atencin mdica continua por parte de un proveedor de atencin primaria fuera del departamento de emergencias. Corrine por permitir que el equipo de [employer] sea parte de miramontes atencin hoy. Contine tomando miramontes medicamento segn lo prescrito. Devyn un seguimiento con el urlogo en 1-2 blank para johnnie nueva evaluacin y manejo adicional. Instructions: Urinary Retention (DC) Forms: [employer] (Bulgarian) Print Language: NICARAGUAN - Clinical Impression Clinical Impression: Encounter for Ann catheter removal - Scribe Statement The provider has reviewed the documentation as recorded by the Scribe Summwinnie Galvez Provider Attestation: All medical record entries made by the Scribe were at my direction and personally dictated by me. I have reviewed the chart and agree that the record accurately reflects my personal performance of the history, physical exam, medical decision making, and the department course for this patient. I have also personally directed, reviewed, and agree with the discharge instructions and disposition.
== END 2019-01-02 12:26 | disposition home or self-care (01) ==
LOC: C.ER 11:50
DX: Z46.6 Encounter for fitting and adjustment of urinary device (principal)

== ENCOUNTER 2019-01-02 22:00 | Emergency (ER) | payer OTHER | END 2019-01-03 00:39 | disposition home or self-care (01) | LOC: C.ER 01-03 00:39 | DX: N39.0 Urinary tract infection, site not specified (principal); R33.9 Retention of urine, unspecified ==